=== PATIENT | male | born 1930 | race Hispanic/Latino ===

== ENCOUNTER 2016-11-15 18:13 | Inpatient (IN) | payer MEDICARE ==
[2016-11-15 18:21] VITALS: BMI 23.0
[2016-11-15 19:33] LABS: VENOUS BLOOD GAS BASE EXCESS -5.2 mmol/L (0.0-2.0); VENOUS BLOOD GAS PCO2 32 mmHg (40-60); VENOUS BLOOD PH 7.38 (7.32-7.43)
[2016-11-15 19:39] LABS: CHLORIDE 107 mmol/L (98-107)
[2016-11-15 19:40] LABS: POTASSIUM 4.2 mmol/L (3.6-5.2); SODIUM 137 mmol/L (132-148)
[2016-11-15 19:42] LABS: GFR AFRICAN-AMERICAN > 60
[2016-11-15 19:43] LABS: ALB/GLOB RATIO 0.9 (1.0-2.1); ALKALINE PHOSPHATASE 69 U/L (38-126); ALT/SGPT 35 U/L (21-72); AST/SGOT 27 U/L (17-59); BILIRUBIN,TOTAL 0.9 mg/dL (0.2-1.3); BLOOD UREA NITROGEN 26 mg/dL (9-20); CALCIUM 9.1 mg/dl (8.6-10.4); CARBON DIOXIDE 19 mmol/L (22-30); GLUCOSE,RANDOM 113 mg/dL (75-110); TOTAL PROTEIN 7.8 g/dL (6.3-8.3)
[2016-11-15 19:54] LABS: BASO % 0.2 % (0.0-2.0); HEMATOCRIT 35.8 % (35.0-51.0); LYMPH # 1.1 K/uL (1.0-4.3); LYMPH % 5.2 % (20.0-40.0); MEAN CELL VOLUME 98.3 fL (80.0-94.0); MEAN CORPUSCULAR HEMOGLOBIN 33.5 pg (27.0-31.0); MEAN CORPUSCULAR HGB CONC 34.1 g/dL (33.0-37.0); MEAN PLATELET VOLUME 7.1 fL (7.2-11.7); MONO # 1.1 K/uL (0.0-0.8); MONO % 5.2 % (0.0-10.0); PLATELET COUNT 272 K/uL (130-400); RED CELL DISTRIBUTION WIDTH 13.6 % (11.5-14.5); WHITE BLOOD COUNT 20.3 K/uL (4.8-10.8)
[2016-11-15] MEDS ORDERED: Sodium Chloride 0.9% 1,000 ML IV ONE (20:00)
[2016-11-15 20:29] LABS: NEUTROPHIL 86 % (50-75); TOTAL CELLS COUNTED 100
[2016-11-15] MEDS ORDERED: cefTRIAXone IV 1 gm in Dextros 50 ML IVPB STA (20:37)
[2016-11-15] MEDS ORDERED: ceFAZolin 1 gm FROZEN Premix 1 GM/50 ML ML IVPB ONE (20:44)
[2016-11-15 20:56] LABS: RBC URINE 4 /hpf (0-3); URINE BACTERIA MOD (<OCC); URINE BILIRUBIN NEGATIVE (NEGATIVE); URINE BLOOD NEGATIVE (NEGATIVE); URINE COLOR Yellow (YELLOW); URINE GLUCOSE (UA) NORMAL (Normal); URINE KETONE TRACE mg/dL (NEGATIVE); URINE LEUKOCYTE ESTERASE 3+ Leu/uL (Negative); URINE PROTEIN 2+ mg/dL (NEGATIVE); WBC CLUMPS MANY /hpf; WBC URINE 2890 /hpf (0-5)
--- NOTE | 2016-11-15 21:28 | C.PDOC ---
History Of Present Illness Pt was sent in from [facility] due to fever. Time Seen by Provider: 11/15/16 19:51 Chief Complaint (Nursing): Fever History Per: Family (Son), Other (NH transfer papers) History/Exam Limitations: clinical condition, other (Pt is nonverbal) Onset/Duration Of Symptoms: Days (1) Current Symptoms Are (Timing): Still Present Associated Symptoms: Fever Severity: Moderate Recent travel outside of the [place]: No Additional History Per: Prior Records Past Medical History Reviewed: Historical Data, Nursing Documentation, Vital Signs Vital Signs: Last Vital Signs Temp 101.2 F H 11/15/16 21:04 Pulse 81 11/15/16 21:04 Resp 26 H 11/15/16 21:04 BP 107/64 11/15/16 19:49 Pulse Ox 100 11/15/16 21:04 - Medical History PMH: Arthritis (Osteoarthritis), Atrial Fibrillation, Benign Prostatic Hyperplasia, CAD, CHF, COPD, CVA (affecting right side and speech), Dementia, HTN, Hypercholesterolemia, Hypothyroidism, Parkinson's Disease ((?)) Surgical History: Pacemaker - [employer] Procedures CIRCUMCISION (01/03/14) CYSTOSCOPY NEC (01/03/14) INSERT INTESTINAL TUBE (01/03/14) Family History: States: Unknown Family Hx - Social History Hx Tobacco Use: No Hx Alcohol Use: No Hx Substance Use: No - Immunization History Hx Tetanus Toxoid Vaccination: No Hx Influenza Vaccination: No Hx Pneumococcal Vaccination: No Review Of Systems Review Of Systems: ROS cannot be obtained secondary to pt's inabilty to answer questions. Physical Exam - Physical Exam Appears: Chronically Ill Skin: Normal Color, Warm, Dry Head: Atraumatic, Normacephalic Eye(s): bilateral: PERRL, EOMI Oral Mucosa: Dry Neck: Normal ROM, Supple Cardiovascular: Rhythm Regular Respiratory: Normal Breath Sounds, No Accessory Muscle Use Gastrointestinal/Abdominal: Soft, No Tenderness Back: Other (Stage 2 sacral decubutus ulcer) Extremity: Normal ROM Neurological/Psych: No Normal Speech (nonverbal), Other (Moving all extremities) ED Course And Treatment - Laboratory Results Result Diagrams: 11/15/16 19:19 11/15/16 19:19 Lab Interpretation: Abnormal Interpretation Of Abnormal: Leukocytosis. UTI. ECG: Interpreted By Me, Viewed By Me ECG Rhythm: Sinus Rhythm, R BBB, PVC, Nonspecific Changes Rate From EC O2 Sat by Pulse Oximetry: 100 Pulse Ox Interpretation: Normal - Radiology CXR: Interpreted by Me, Viewed By Me CXR Interpretation: Yes: No Acute Disease - Physician Consult Information Physician Contacted: Thony Mojica (PMD) Outcome Of Conversation: He states that he is away and wants pt to be admitted on hospitalist service. Progress - Interventions Interventions:: Observation, Intravenous fluid - Medications Administered Intravenous: Other (Abx) - Data Reviewed Data Reviewed: Lab, Diagnostic imaging, EKG, Old records - Patient Status Patient status: Partially improved - Continuity of Care Discussed patient case with:: Patient, Family-HIPPA compliant, ED Nurse, PMD, On -call PMD-pt unassigned - Patient Plan Patient Plan: Admission Disposition Counseled Patient/Family Regarding: Studies Performed, Diagnosis - Disposition Disposition: HOSPITALIZED Disposition Time: 21:29 Condition: SERIOUS - POA Present On Arrival: Pressure Ulcer - Clinical Impression Clinical Impression: Fever, UTI (urinary tract infection), Sepsis
--- NOTE | 2016-11-15 22:30 | CP.PCM.HP ---
<Giovanny Fleming P - Last Filed: 11/16/16 03:44> Meds Allergies/Adverse Reactions: Allergies Allergy/AdvReac Type Severity Reaction Status Date / Time No Known Allergies Allergy Verified 11/15/16 18:20 Results - Vital Signs Recent Vital Signs: Last Vital Signs Temp 98.4 F 11/16/16 00:00 Pulse 98 H 11/16/16 00:00 Resp 20 11/16/16 00:00 BP 147/74 11/16/16 00:00 Pulse Ox 98 11/16/16 00:00 - Labs Result Diagrams: 11/15/16 19:19 11/15/16 19:19 Labs: Laboratory Results - last 24 hr 11/15/16 11/15/16 11/15/16 19:19 19:19 19:20 WBC 20.3 H D RBC 3.65 L Hgb 12.2 Hct 35.8 MCV 98.3 H D MCH 33.5 H MCHC 34.1 RDW 13.6 Plt Count 272 MPV 7.1 L Neut % (Auto) 89.4 H Lymph % (Auto) 5.2 L [place] % (Auto) 5.2 Eos % (Auto) 0.0 Baso % (Auto) 0.2 Neut # 18.2 H Lymph # 1.1 [place] # 1.1 H Eos # 0.0 Baso # 0.0 Neutrophils % (Manual) 86 H Band Neutrophils % 5 H Lymphocytes % (Manual) 5 L Monocytes % (Manual) 4 Platelet Estimate Normal Anisocytosis (manual) Slight pO2 25 L VBG pH 7.38 VBG pCO2 32 L VBG HCO3 19.4 VBG Total CO2 19.9 L VBG O2 Sat (Calc) 54.9 VBG Base Excess -5.2 L VBG Potassium 3.8 Glucose 113 H Lactate 1.3 Sodium 137 146.0 Potassium 4.2 Chloride 107 122.0 H Carbon Dioxide 19 L Anion Gap 15 BUN 26 H Creatinine 1.1 Est GFR ( Amer) > 60 Est GFR (Non-Af Amer) > 60 POC Glucose (mg/dL) Random Glucose 113 H Calcium 9.1 Total Bilirubin 0.9 AST 27 ALT 35 Alkaline Phosphatase 69 Total Protein 7.8 Albumin 3.7 Globulin 4.1 H Albumin/Globulin Ratio 0.9 L Venous Blood Potassium 3.8 Urine Color Urine Clarity Urine pH Ur Specific [place] Urine Protein Urine Glucose (UA) Urine Ketones Urine Blood Urine Nitrate Urine Bilirubin Urine Urobilinogen Ur Leukocyte Esterase Urine WBC (Auto) Urine RBC (Auto) Urine WBC Clumps (Auto) Urine Bacteria 11/15/16 11/16/16 20:35 01:54 WBC RBC Hgb Hct MCV MCH MCHC RDW Plt Count MPV Neut % (Auto) Lymph % (Auto) [place] % (Auto) Eos % (Auto) Baso % (Auto) Neut # Lymph # [place] # Eos # Baso # Neutrophils % (Manual) Band Neutrophils % Lymphocytes % (Manual) Monocytes % (Manual) Platelet Estimate Anisocytosis (manual) pO2 VBG pH VBG pCO2 VBG HCO3 VBG Total CO2 VBG O2 Sat (Calc) VBG Base Excess VBG Potassium Glucose Lactate Sodium Potassium Chloride Carbon Dioxide Anion Gap BUN Creatinine Est GFR ( Amer) Est GFR (Non-Af Amer) POC Glucose (mg/dL) 138 H Random Glucose Calcium Total Bilirubin AST ALT Alkaline Phosphatase Total Protein Albumin Globulin Albumin/Globulin Ratio Venous Blood Potassium Urine Color Yellow Urine Clarity Turbid Urine pH 5.0 Ur Specific [place] 1.021 Urine Protein 2+ H Urine Glucose (UA) Normal Urine Ketones Trace Urine Blood Negative Urine Nitrate Negative Urine Bilirubin Negative Urine Urobilinogen 2.0 Ur Leukocyte Esterase 3+ H Urine WBC (Auto) 2890 H Urine RBC (Auto) 4 H Urine WBC Clumps (Auto) Many H Urine Bacteria Mod H Attending/Attestation - Attestation I have personally seen and examined this patient.: Yes I have fully participated in the care of the patient.: Yes I have reviewed all pertinent clinical information: Yes Notes (Text): Assessment * Sepsis source likely UTI, DD of cellulitis of right leg, atelectesis of lung, hardwares pacemaker/wires, pending blood/urine cultures * [place] resident * Stroke with Right arm weakness, right leg some weakness, aphasia * h/o afib controlled rate * H/o seizure disorder * H/o BPH * H/o ileus and constipation, currently abd soft and clinically benign * DNR/DNI Plan * Broad spectrum abx started vancomycin, zosyn * Venous doppler * One dose therapeutic lovenox * Gi prophylaxis * see orders for detail. <Eva Estrada - Last Filed: 11/16/16 05:27> History of Present Illness - History of Present Illness History of Present Illness: Patient is an 86 year old male with a past medical history of osteoarthritis, atrial fibrillation, BPH, CAD, CHF, COPD, CVA, dementia, hypertension, high cholesterol, hypothyroidism, and Parksinsons, who is sent by his half-way to the ED for a fever. Patient is non-verbal and occasionally responds to commands, therefore, history and review of systems is limited. In the ED, patient was found to have a temperature of 101.2 and a urinalysis positive for bacteria. Patient was given fluids and one dose of Rocephin. Patient appears comfortable in bed and in no acute distress. PMD: Dr. Thony Mojica PMHx: osteoarthritis, atrial fibrillation, BPH, CAD, CHF, COPD, CVA (right sided weakness and speech affected), dementia, hypertension, high cholesterol, hypothyroidism, and Parksinsons disease Surgical, family, and social history not obtained by patient (non-verbal, no family at bedside) Allergies: NKDA Medications: See EMR Present on Admission - Present on Admission Any Indicators Present on Admission: Yes Decubitus Ulcer Stage: II Review of Systems - Review of Systems Systems not reviewed;Unavailable: Other (Non-verbal) Past Patient History - Infectious Disease Hx of Infectious Diseases: None - Tetanus Immunizations Tetanus Immunization: Unknown - Past Medical History & Family History Past Medical History?: Yes - Past Social History Smoking Status: Former Smoker - CARDIAC Hx Atrial Fibrillation: Yes Hx Congestive Heart Failure: Yes Hx Hypercholesterolemia: Yes Hx Hypertension: Yes Hx Pacemaker: Yes - PULMONARY Hx Chronic Obstructive Pulmonary Disease (COPD): Yes - NEUROLOGICAL Hx Dementia: Yes Hx Parkinson's Disease: Yes ((?)) - HEENT Hx HEENT Problems: Yes Hx Deafness: Yes (partial) Other/Comment: [place] - ENDOCRINE/METABOLIC Hx Hypothyroidism: Yes - HEMATOLOGICAL/ONCOLOGICAL Hx Blood Disorders: No - INTEGUMENTARY Hx Dermatological Problems: No - MUSCULOSKELETAL/RHEUMATOLOGICAL Hx Arthritis: Yes (Osteoarthritis) - GASTROINTESTINAL Hx Gastrointestinal Disorders: Yes Hx Constipation: Yes - GENITOURINARY/GYNECOLOGICAL Hx Genitourinary Disorders: Yes Hx Hematuria: Yes (current dx) Hx Prostate Cancer: No Hx Prostate Problems: Yes (BPH) - PSYCHIATRIC Hx Substance Use: No - SURGICAL HISTORY Hx Surgeries: Yes Other/Comment: S/p permanent pacemaker implant - ANESTHESIA Hx Anesthesia: Yes Hx Anesthesia Reactions: No Hx Malignant Hyperthermia: No Physical Exam - Constitutional Appears: Chronically Ill - Head Exam Head Exam: ATRAUMATIC, NORMAL INSPECTION - Eye Exam Eye Exam: PERRL (sluggish). absent: EOMI (Tracking; does not follow commands.) - ENT Exam ENT Exam: Mucous Membranes Dry - Respiratory Exam Respiratory Exam: Decreased Breath Sounds. absent: Rhonchi, Wheezes, Respiratory Distress - Cardiovascular Exam Cardiovascular Exam: RRR, +S1, +S2. absent: Bradycardia, Tachycardia - GI/Abdominal Exam GI & Abdominal Exam: Distended, Normal Bowel Sounds, Soft. absent: Tenderness - Extremities Exam Extremities exam: Positive for: pedal pulses present (diminished dorsalis pedis pulses). Negative for: normal inspection (RLE warm to touch and slightly larger compared to LLE), pedal edema, tenderness - Neurological Exam Neurological exam: Alert - Psychiatric Exam Psychiatric exam: Flat Affect - Skin Skin Exam: Dry, Intact, Normal Color, Warm Additional comments: Stage 2 sacral decubitus ulcer. Results - Vital Signs Recent Vital Signs: Last Vital Signs Temp 101.1 F H 11/15/16 22:16 Pulse 83 11/15/16 22:16 Resp 25 H 11/15/16 22:16 BP 119/61 11/15/16 22:16 Pulse Ox 99 11/15/16 22:16 - Labs Result Diagrams: 11/15/16 19:19 11/15/16 19:19 Labs: Laboratory Results - last 24 hr 11/15/16 11/15/16 11/15/16 19:19 19:19 19:20 WBC 20.3 H D RBC 3.65 L Hgb 12.2 Hct 35.8 MCV 98.3 H D MCH 33.5 H MCHC 34.1 RDW 13.6 Plt Count 272 MPV 7.1 L Neut % (Auto) 89.4 H Lymph % (Auto) 5.2 L [place] % (Auto) 5.2 Eos % (Auto) 0.0 Baso % (Auto) 0.2 Neut # 18.2 H Lymph # 1.1 [place] # 1.1 H Eos # 0.0 Baso # 0.0 Neutrophils % (Manual) 86 H Band Neutrophils % 5 H Lymphocytes % (Manual) 5 L Monocytes % (Manual) 4 Platelet Estimate Normal Anisocytosis (manual) Slight pO2 25 L VBG pH 7.38 VBG pCO2 32 L VBG HCO3 19.4 VBG Total CO2 19.9 L VBG O2 Sat (Calc) 54.9 VBG Base Excess -5.2 L VBG Potassium 3.8 Glucose 113 H Lactate 1.3 Sodium 137 146.0 Potassium 4.2 Chloride 107 122.0 H Carbon Dioxide 19 L Anion Gap 15 BUN 26 H Creatinine 1.1 Est GFR ( Amer) > 60 Est GFR (Non-Af Amer) > 60 Random Glucose 113 H Calcium 9.1 Total Bilirubin 0.9 AST 27 ALT 35 Alkaline Phosphatase 69 Total Protein 7.8 Albumin 3.7 Globulin 4.1 H Albumin/Globulin Ratio 0.9 L Venous Blood Potassium 3.8 Urine Color Urine Clarity Urine pH Ur Specific [place] Urine Protein Urine Glucose (UA) Urine Ketones Urine Blood Urine Nitrate Urine Bilirubin Urine Urobilinogen Ur Leukocyte Esterase Urine WBC (Auto) Urine RBC (Auto) Urine WBC Clumps (Auto) Urine Bacteria 11/15/16 20:35 WBC RBC Hgb Hct MCV MCH MCHC RDW Plt Count MPV Neut % (Auto) Lymph % (Auto) [place] % (Auto) Eos % (Auto) Baso % (Auto) Neut # Lymph # [place] # Eos # Baso # Neutrophils % (Manual) Band Neutrophils % Lymphocytes % (Manual) Monocytes % (Manual) Platelet Estimate Anisocytosis (manual) pO2 VBG pH VBG pCO2 VBG HCO3 VBG Total CO2 VBG O2 Sat (Calc) VBG Base Excess VBG Potassium Glucose Lactate Sodium Potassium Chloride Carbon Dioxide Anion Gap BUN Creatinine Est GFR ( Amer) Est GFR (Non-Af Amer) Random Glucose Calcium Total Bilirubin AST ALT Alkaline Phosphatase Total Protein Albumin Globulin Albumin/Globulin Ratio Venous Blood Potassium Urine Color Yellow Urine Clarity Turbid Urine pH 5.0 Ur Specific [place] 1.021 Urine Protein 2+ H Urine Glucose (UA) Normal Urine Ketones Trace Urine Blood Negative Urine Nitrate Negative Urine Bilirubin Negative Urine Urobilinogen 2.0 Ur Leukocyte Esterase 3+ H Urine WBC (Auto) 2890 H Urine RBC (Auto) 4 H Urine WBC Clumps (Auto) Many H Urine Bacteria Mod H Assessment & Plan (1) Sepsis Assessment and Plan: Sepsis likely secondary to UTI, ddx of cellulitis of right leg, sacral decubitus ulcer, atelectasis of lung, hardware of pacemaker/wires Started on broad spectrum antibiotics- Vancomycin and Zosyn Blood and urine cultures: f/u results Stool culture: f/u results Venous dopplers of right LE: f/u results C.Diff: f/u results Fecal Leukocytes: f/u results Stool culture: f/u results Status: Acute (2) UTI (urinary tract infection) Assessment and Plan: Sepsis likely secondary to UTI, ddx of cellulitis of right leg, atelectasis, of lung, hardware of pacemaker/wires UA: Protein 2+, Leukocyte Esterase 3+, WBC 2890, RBC 4, WBC clumps- many, Bacteria- moderate. Blood and urine cultures: pending Started on broad spectrum antibiotics- Vancomycin and Zosyn Status: Acute (3) Right leg swelling Assessment and Plan: Venous dopplers: f/u results One stat dose of lovenox 80mg given. Status: Acute (4) Seizure Assessment and Plan: History of seizures. Continue home medication, Phenytoin 100mg PO TID. Status: Acute (5) CAD (coronary artery disease) Assessment and Plan: Continue aspirin, plavix, and metoprolol tartrate. Status: Acute (6) Hypothyroid Assessment and Plan: Continue home medication, Synthroid 125mcg PO daily. Status: Acute (7) BPH (benign prostatic hyperplasia) Assessment and Plan: History of BPH. Continue home medications, Proscar 5mg PO daily, Floxmax 0.4mg PO daily Status: Acute (8) Prophylactic measure Assessment and Plan: Telehealth Director referral and speech therapy for swallow evaluation Heart Healthy Diet- finely chopped Pepcid 20mg PO daily PT/OT Status: Acute
[2016-11-15] MEDS: Sodium Chloride 0.9% 1,000 ML IV SCH (23:15)
[2016-11-16] MEDS ORDERED: Enoxaparin 80 mg Syringe SC STA (03:27)
[2016-11-16] MEDS: Piperacill/Tazo 3.375gm in Dex 3.375 GM/50 ML BAG IVPB SCH ×4 (04:09→21:39)
[2016-11-16] MEDS ORDERED: Sodium Chloride 0.9% 1,000 ML IV ONE (05:49)
[2016-11-16] MEDS: Levothyroxine 125 MCG TAB PO SCH (06:44)
[2016-11-16 07:02] LABS: BASO % 0.2 % (0.0-2.0); HEMATOCRIT 34.8 % (35.0-51.0); LYMPH % 5.7 % (20.0-40.0); MEAN CELL VOLUME 98.5 fL (80.0-94.0); MEAN CORPUSCULAR HEMOGLOBIN 32.9 pg (27.0-31.0); MEAN CORPUSCULAR HGB CONC 33.4 g/dL (33.0-37.0); MEAN PLATELET VOLUME 7.2 fL (7.2-11.7); MONO # 0.7 K/uL (0.0-0.8); MONO % 3.7 % (0.0-10.0); NRBC % 0.1 % (0.0-2.0); PLATELET COUNT 268 K/uL (130-400); RED CELL DISTRIBUTION WIDTH 13.7 % (11.5-14.5); WHITE BLOOD COUNT 17.6 K/uL (4.8-10.8)
[2016-11-16 07:15] LABS: CHLORIDE 110 mmol/L (98-107); POTASSIUM 3.3 mmol/L (3.6-5.2); SODIUM 140 mmol/L (132-148)
[2016-11-16 07:17] LABS: BILIRUBIN,TOTAL 1.1 mg/dL (0.2-1.3); GFR AFRICAN-AMERICAN > 60
[2016-11-16 07:18] LABS: ALKALINE PHOSPHATASE 74 U/L (38-126); ALT/SGPT 27 U/L (21-72); AST/SGOT 21 U/L (17-59); BLOOD UREA NITROGEN 23 mg/dL (9-20); CARBON DIOXIDE 17 mmol/L (22-30); GLUCOSE,RANDOM 105 mg/dL (75-110); TOTAL PROTEIN 7.4 g/dL (6.3-8.3)
[2016-11-16 07:19] LABS: CALCIUM 8.4 mg/dl (8.6-10.4)
[2016-11-16 07:27] LABS: ALB/GLOB RATIO 0.9 (1.0-2.1)
--- NOTE | 2016-11-16 09:01 | RAD ---
HISTORY: cough fever COMPARISON: Comparison is made to 01/24/2016 FINDINGS: LUNGS: Bibasilar small opacities likely represent atelectasis. PLEURA: No significant pleural effusion identified, no pneumothorax apparent. CARDIOVASCULAR: Normal. Multiple bilateral pacemaker wires are seen in place. OSSEOUS STRUCTURES: No significant abnormalities. VISUALIZED UPPER ABDOMEN: Mild elevation of the left hemidiaphragm associated with mildly dilated bowel loops. OTHER FINDINGS: None. IMPRESSION: Small bibasilar opacities likely atelectasis. Otherwise no significant interval change.
[2016-11-16 09:08] LABS: NEUTROPHIL 82 % (50-75); TOTAL CELLS COUNTED 100
[2016-11-16] MEDS: Enoxaparin 40 mg Syringe SC SCH (09:50)
[2016-11-16] MEDS ORDERED: Potassium Chloride 20 mEq ER Tab PO SCH ×2 (10:00→10:45)
--- NOTE | 2016-11-16 16:02 | CP.PCM.PN ---
<Lucinda Bill - Last Filed: 11/16/16 15:47> Subjective - Date & Time of Evaluation Date of Evaluation: 11/16/16 Time of Evaluation: 09:00 - Subjective Subjective: Medicine Note for Dr. Guy Patient was seen and examined at bedside. and Son at bedside. Reported patient had a fever yesterday. 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 Objective - Vital Signs/Intake and Output Vital Signs (last 24 hours): Temp Pulse Resp BP Pulse Ox 99.0 F 98 H 20 95/61 L 95 11/16/16 09:12 11/16/16 09:12 11/16/16 09:12 11/16/16 09:49 11/16/16 09:12 Intake and Output: 11/16/16 11/16/16 06:59 18:59 Intake Total 3130 Output Total 700 Balance 2430 - Medications Medications: Current Medications Acetaminophen (Tylenol 325mg Tab) 325 mg PO Q6H PRN PRN Reason: Fever >100.4 F Ascorbic Acid (Vitamin C 500 Mg Tab) 500 mg PO BID [facility] Last Admin: 11/16/16 09:50 Dose: 500 mg Clopidogrel Bisulfate (Plavix) 75 mg PO DAILY [facility] Last Admin: 11/16/16 09:50 Dose: 75 mg Enoxaparin Sodium (Lovenox) 40 mg SC DAILY [facility] Last Admin: 11/16/16 09:50 Dose: 40 mg Famotidine (Pepcid) 20 mg PO DAILY [facility] Last Admin: 11/16/16 09:50 Dose: 20 mg Finasteride (Proscar) 5 mg PO DAILY [facility] Last Admin: 11/16/16 09:50 Dose: 5 mg Folic Acid (Folic Acid) 1 mg PO DAILY [facility] Last Admin: 11/16/16 09:48 Dose: 1 mg Sodium Chloride (Sodium Chloride 0.9%) 1,000 mls @ 100 mls/hr IV .Q10H [facility] Last Admin: 11/15/16 23:15 Dose: 100 mls/hr Piperacillin Sod/Tazobactam Sod (Zosyn 3.375 Gm Iv Premix) 3.375 gm in 50 mls @ 100 mls/hr IVPB Q6H [facility] Last Admin: 11/16/16 09:51 Dose: 100 mls/hr Vancomycin HCl 1 gm/ Sodium (Chloride) 250 mls @ 166.7 mls/hr IVPB Q24H [facility] Last Admin: 11/16/16 04:09 Dose: 166.7 mls/hr Levothyroxine Sodium (Synthroid) 125 mcg PO DAILY@0630 [facility] Last Admin: 11/16/16 06:44 Dose: 125 mcg Metoprolol Tartrate (Lopressor) 25 mg PO DAILY [facility] Last Admin: 11/16/16 09:49 Dose: Not Given Phenytoin Sodium (Dilantin) 100 mg PO QID [facility] Last Admin: 11/16/16 13:45 Dose: 100 mg Pneumococcal Polyvalent Vaccine (Pneumovax 23 Vaccine) 0.5 ml IM .ONCE ONE Stop: 11/18/16 10:01 Potassium Chloride (K-Dur 20 Meq Er Tab) 40 meq PO BID [facility] Stop: 11/17/16 10:46 Last Admin: 11/16/16 12:00 Dose: 40 meq Tamsulosin HCl (Flomax) 0.4 mg PO DAILY [facility] Last Admin: 11/16/16 09:48 Dose: 0.4 mg - Labs Labs: 11/16/16 06:53 11/16/16 06:53 - Additional Findings Additional findings: - Constitutional Appears: Chronically Ill - Head Exam Head Exam: ATRAUMATIC, NORMAL INSPECTION - Eye Exam Eye Exam: PERRL (sluggish). absent: EOMI (Tracking; does not follow commands.) - ENT Exam ENT Exam: Mucous Membranes Dry - Respiratory Exam Respiratory Exam: Decreased Breath Sounds. absent: Rhonchi, Wheezes, Respiratory Distress - Cardiovascular Exam Cardiovascular Exam: RRR, +S1, +S2. absent: Bradycardia, Tachycardia - GI/Abdominal Exam GI & Abdominal Exam: Distended, Normal Bowel Sounds, Soft. absent: Tenderness - Extremities Exam Extremities exam: Positive for: pedal pulses present (diminished dorsalis pedis pulses). Negative for: normal inspection (RLE warm to touch and slightly larger compared to LLE), pedal edema, tenderness - Neurological Exam Neurological exam: Alert - Psychiatric Exam Psychiatric exam: Flat Affect - Skin Skin Exam: Dry, Intact, Normal Color, Warm Additional comments: Stage 2 sacral decubitus ulcer. Assessment and Plan - Assessment and Plan (Free Text) Plan: Sepsis UTI (urinary tract infection) * Sepsis likely secondary to UTI, sacral decubitus ulcer stage 2 * Infectious Disease consulted- Dr. Armendariz- help appreciated * Febrile, tachycardia, leukocytosis with left shift, bandemia, lactate 1.3 * UA: Protein 2+, Leukocyte Esterase 3+, WBC 2890, RBC 4, WBC clumps- many, Bacteria- moderate. * Urine Culture 11/15/16: Gram neg xander, strep agalactiae group B - pending results * [place] inserted, monitor Is & Os * F/U Blood cultures, Stool culture, C.Diffs, Fecal Leukocytes * NS @ 100cc/hr * Vancomycin and Zosyn started on 11/16/16 Sacral Wound Ulcer - Stage 2 * Wound care consulted CAD (coronary artery disease) * Continue aspirin, plavix, and metoprolol tartrate * F/U ECHO Right leg swelling * Venous dopplers: negative for DVT * One stat dose of lovenox 80mg was given in the ED Seizure * Continue home medication, Phenytoin 100mg PO TID Hypothyroid * Continue home medication, Synthroid 125mcg PO daily BPH (benign prostatic hyperplasia) * Continue home medications, Proscar 5mg PO daily, Floxmax 0.4mg PO daily Prophylactic measure * GI PPX: Pepcid 20mg PO daily * DVT PPX: Lovenox 40mg SC daily, SCDs * Payroll And Benefits Analyst referral and speech therapy for swallow evaluation * Dysphagia Diet * PT/OT DW CALI Mejia DO, PGY-1 <Augustin Horta - Last Filed: 11/16/16 18:21> Objective - Vital Signs/Intake and Output Vital Signs (last 24 hours): Temp Pulse Resp BP Pulse Ox 98.1 F 74 20 107/66 99 11/16/16 15:00 11/16/16 16:40 11/16/16 15:00 11/16/16 16:40 11/16/16 16:40 Intake and Output: 11/16/16 11/16/16 06:59 18:59 Intake Total 3130 Output Total 700 Balance 2430 - Medications Medications: Current Medications Acetaminophen (Tylenol 325mg Tab) 325 mg PO Q6H PRN PRN Reason: Fever >100.4 F Ascorbic Acid (Vitamin C 500 Mg Tab) 500 mg PO BID [facility] Last Admin: 11/16/16 17:48 Dose: 500 mg Clopidogrel Bisulfate (Plavix) 75 mg PO DAILY [facility] Last Admin: 11/16/16 09:50 Dose: 75 mg Enoxaparin Sodium (Lovenox) 40 mg SC DAILY [facility] Last Admin: 11/16/16 09:50 Dose: 40 mg Famotidine (Pepcid) 20 mg PO DAILY [facility] Last Admin: 11/16/16 09:50 Dose: 20 mg Finasteride (Proscar) 5 mg PO DAILY [facility] Last Admin: 11/16/16 09:50 Dose: 5 mg Folic Acid (Folic Acid) 1 mg PO DAILY [facility] Last Admin: 11/16/16 09:48 Dose: 1 mg Sodium Chloride (Sodium Chloride 0.9%) 1,000 mls @ 100 mls/hr IV .Q10H [facility] Last Admin: 11/16/16 17:50 Dose: 100 mls/hr Piperacillin Sod/Tazobactam Sod (Zosyn 3.375 Gm Iv Premix) 3.375 gm in 50 mls @ 100 mls/hr IVPB Q6H [facility] Last Admin: 11/16/16 16:04 Dose: 100 mls/hr Vancomycin HCl 1 gm/ Sodium (Chloride) 250 mls @ 166.7 mls/hr IVPB Q24H [facility] Last Admin: 11/16/16 04:09 Dose: 166.7 mls/hr Levothyroxine Sodium (Synthroid) 125 mcg PO DAILY@0630 [facility] Last Admin: 11/16/16 06:44 Dose: 125 mcg Metoprolol Tartrate (Lopressor) 25 mg PO DAILY [facility] Last Admin: 11/16/16 09:49 Dose: Not Given Phenytoin Sodium (Dilantin) 100 mg PO QID [facility] Last Admin: 11/16/16 17:48 Dose: 100 mg Pneumococcal Polyvalent Vaccine (Pneumovax 23 Vaccine) 0.5 ml IM .ONCE ONE Stop: 11/18/16 10:01 Potassium Chloride (Potassium Chloride Oral Soln) 40 meq PO BID [facility] Stop: 11/17/16 10:46 Last Admin: 11/16/16 18:10 Dose: 40 meq Tamsulosin HCl (Flomax) 0.4 mg PO DAILY [facility] Last Admin: 11/16/16 09:48 Dose: 0.4 mg - Labs Labs: 11/16/16 06:53 11/16/16 06:53 Attending/Attestation - Attestation I have personally seen and examined this patient.: Yes I have fully participated in the care of the patient.: Yes I have reviewed all pertinent clinical information, including history, physical exam and plan: Yes Notes (Text): 11/16/16 18:11 This is a 86 years old male with history of CVA,aphasia,CAD,Seizure, hypothyroidism,BPH and sacral ulcer was brought in from [place] for fever.patients history Discussed with his family at bed side.Patient was seen and examined with resident .His fever is coming downe, tachycardia, leukocytosis with left shift, bandemia, lactate 1.3 1.Sepsis likely secondary to UTI continue zosyn and vancomycin,IV hydration,monitor urine out put ,monitor BP Infectious Disease consulted- Dr. Armendariz- help appreciated Urine Culture 11/15/16: Gram neg xander, strep agalactiae group B - pending results ,follow blood and urine cultures 2.sacral wound-wound care by wound care team 3.CAD-continue asprin,plavix and metoprolol 4.rigth leg edema-follow doppler,continue lovenox 5seizure on phenytoin 6.Hypothyroidism on synthroid 7BPH-continue home meds 8.DVT and GI rpophylaxs 9.PT and OT once stable
--- NOTE | 2016-11-16 16:13 | CP.PCM.CON ---
History of Present Illness - History of Present Illness History of Present Illness: 86 yo male with hx of CVA and right sided weakness admitted with Urosepsis unable to provide hx - Medical History PMH: Arthritis (Osteoarthritis), Atrial Fibrillation, Benign Prostatic Hyperplasia, CAD, CHF, COPD, CVA (affecting right side and speech), Dementia, HTN, Hypercholesterolemia, Hypothyroidism, Parkinson's Disease ((?)) Surgical History: Pacemaker Review of Systems - Review of Systems Systems not reviewed;Unavailable: Altered Mental Status - Constitutional Constitutional: As Per HPI - EENT Eyes: absent: As Per HPI, Blind Spots, Blurred Vision, Change in Vision, Decreased Night Vision, Diplopia, Discharge, Dry Eye, Exophthalmos, Floaters, Irritation, Itchy Eyes, Loss of Peripheral Vision, Pain, Photophobia, Requires Corrective Lenses, Sees Flashes, Spots in Vision, Tunnel Vision, Other Visual Disturbances, Loss of Vision, Other Ears: absent: As Per HPI, Decreased Hearing, Ear Discharge, Ear Pain, Tinnitus, Abnormal Hearing, Disequilibrium, Dizziness, Other Nose/Mouth/Throat: absent: As Per HPI, Epistaxis, Nasal Congestion, Nasal Discharge, Nasal Obstruction, Nasal Trauma, Nose Pain, Post Nasal Drip, Sinus Pain, Sinus Pressure, Bleeding Gums, Change in Voice, Dental Pain, Dry Mouth, Dysphagia, Halitosis, Hoarsness, Lip Swelling, Mouth Lesions, Mouth Pain, Odynophagia, Sore Throat, Throat Swelling, Tongue Swelling, Facial Pain, Neck Pain, Neck Mass, Other - Cardiovascular Cardiovascular: absent: As Per HPI, Acrocyanosis, Chest Pain, Chest Pain at Rest , Chest Pain with Activity, Claudication, Diaphoresis, Dyspnea, Dyspnea on Exertion, Edema, Irregular Heart Rhythm, Pain Radiating to Arm/Neck/Jaw, Leg Edema, Leg Ulcers, Lightheadedness, Orthopnea, Palpitations, Paroxysmal Nocturnal Dyspnea, Pedal Edema, Radiating Pain, Rapid Heart Rate, Slow Heart Rate, Syncope, Other - Respiratory Respiratory: absent: As Per HPI, Cough, Dyspnea, Hemoptysis, Dyspnea on Exertion , Wheezing, Snoring, Stridor, Pain on Inspiration, Chest Congestion, Excessive Mucous Production, Change in Mucous Color, Pain with Coughing, Other - Gastrointestinal Gastrointestinal: absent: As Per HPI, Abdominal Pain, Belching, Bloating, Change in Bowel Habits, Change in Stool Character, Coffee Ground Emesis, Constipation, Cramping, Diarrhea, Dyspepsia, Dysphagia, Early Satiety, Excessive Flatus, Fecal Incontinence, Heartburn, Hematemesis, Hematochezia, Loose Stools, Melena, Nausea, Odynophagia, Temesmus, Vomiting, Other - Genitourinary Genitourinary: absent: As Per HPI, Change in Urinary Stream, Difficulty Urinating, Dysuria, Flank Pain, Hematuria, Pyuria, Nocturia, Urinary Incontinence, Urinary Frequency, Urinary Hesitance, Urinary Urgency, Voiding Freq/Small Amts, Freq UTI, Hx Renal/Bladder Calculi, Hx /Renal Surgery, Bladder Distension, Other - Musculoskeletal Musculoskeletal: absent: As Per HPI, Abnormal Gait, Arthralgias, Atrophy, Back Pain, Deformity, Joint Swelling, Limited Range of Motion, Loss of Height, Muscle Cramps, Muscle Weakness, Myalgias, Neck Pain, Numbness, Radiating Pain into Limb, Stiffness, Tingling, Other - Integumentary Integumentary: absent: As Per HPI, Acne, Alopecia, Bleeding Lesions, Change in Hair, Change in Nails, Change in Pigmentation, Changing Lesions, Dry Skin, Erythema, Furuncle, Hirsutism, Lesions, New Lesions, Non-Healing Lesions, Photosensitivity, Pruritus, Rash, Skin Pain, Skin Ulcer, Sores, Striae, Swelling , Unusual Bruising, Wounds, Jaundice, Other - Neurological Neurological: absent: As Per HPI, Abnormal Gait, Abnormal Hearing, Abnormal Movements, Abnormal Speech, Behavioral Changes, Burning Sensations, Confusion, Convulsions, Disequilibrium, Dizziness, Numbness, Focal Weakness, Frequent Falls , Headaches, Lack of Coordination, Loss of Vision, Memory Loss, Paresthesias, Radicular Pain, Restless Legs, Sensory Deficit, Syncope, Tingling, Tremor, Vertigo, Weakness, Other Visual Disturbances, Other - Psychiatric Psychiatric: absent: As Per HPI, Abnormal Sleep Pattern, Anhedonia, Anxiety, Auditory Hallucinations, Behavioral Changes, Change in Appetite, Change in Libido, Confusion, Depression, Difficulty Concentrating, Hallucinations, Homicidal Ideation, Hopelessness, Irritability, Memory Loss, Mood Swings, Panic Attacks, Paranoia, Suicidal Ideation, Visual Hallucinations, Tactile Hallucinations, Other - Endocrine Endocrine: absent: As Per HPI, Change in Body Appearance, Change in Libido, Cold Intolorance, Deepening of Voice, Excessive Sweating, Fatigue, Flushing, Heat Intolorance, Increase in Ring/Shoe/Hat Size, Palpitations, Polydipsia, Polyphagia, Polyuria, Other - Hematologic/Lymphatic Hematologic: absent: As Per HPI, Easy Bleeding, Easy Bruising, Lymphadenopathy, Other Past Patient History - Infectious Disease Hx of Infectious Diseases: None - Tetanus Immunizations Tetanus Immunization: Unknown - Past Medical History & Family History Past Medical History?: Yes - Past Social History Smoking Status: Former Smoker - CARDIAC Hx Atrial Fibrillation: Yes Hx Congestive Heart Failure: Yes Hx Hypercholesterolemia: Yes Hx Hypertension: Yes Hx Pacemaker: Yes - PULMONARY Hx Chronic Obstructive Pulmonary Disease (COPD): Yes - NEUROLOGICAL Hx Dementia: Yes Hx Parkinson's Disease: Yes ((?)) - HEENT Hx HEENT Problems: Yes Hx Deafness: Yes (partial) Other/Comment: [place] - RENAL Hx Chronic Kidney Disease: No - ENDOCRINE/METABOLIC Hx Hypothyroidism: Yes - HEMATOLOGICAL/ONCOLOGICAL Hx Blood Disorders: No - INTEGUMENTARY Hx Dermatological Problems: No - MUSCULOSKELETAL/RHEUMATOLOGICAL Hx Arthritis: Yes (Osteoarthritis) - GASTROINTESTINAL Hx Gastrointestinal Disorders: Yes Hx Constipation: Yes - GENITOURINARY/GYNECOLOGICAL Hx Genitourinary Disorders: Yes Hx Hematuria: Yes (current dx) Hx Prostate Cancer: No Hx Prostate Problems: Yes (BPH) - PSYCHIATRIC Hx Substance Use: No - SURGICAL HISTORY Hx Surgeries: Yes Other/Comment: S/p permanent pacemaker implant - ANESTHESIA Hx Anesthesia: Yes Hx Anesthesia Reactions: No Hx Malignant Hyperthermia: No Meds Allergies/Adverse Reactions: Allergies Allergy/AdvReac Type Severity Reaction Status Date / Time No Known Allergies Allergy Verified 11/15/16 18:20 - Medications Medications: Current Medications Acetaminophen (Tylenol 325mg Tab) 325 mg PO Q6H PRN PRN Reason: Fever >100.4 F Ascorbic Acid (Vitamin C 500 Mg Tab) 500 mg PO BID [facility] Last Admin: 11/16/16 09:50 Dose: 500 mg Clopidogrel Bisulfate (Plavix) 75 mg PO DAILY [facility] Last Admin: 11/16/16 09:50 Dose: 75 mg Enoxaparin Sodium (Lovenox) 40 mg SC DAILY [facility] Last Admin: 11/16/16 09:50 Dose: 40 mg Famotidine (Pepcid) 20 mg PO DAILY [facility] Last Admin: 11/16/16 09:50 Dose: 20 mg Finasteride (Proscar) 5 mg PO DAILY [facility] Last Admin: 11/16/16 09:50 Dose: 5 mg Folic Acid (Folic Acid) 1 mg PO DAILY [facility] Last Admin: 11/16/16 09:48 Dose: 1 mg Sodium Chloride (Sodium Chloride 0.9%) 1,000 mls @ 100 mls/hr IV .Q10H [facility] Last Admin: 11/15/16 23:15 Dose: 100 mls/hr Piperacillin Sod/Tazobactam Sod (Zosyn 3.375 Gm Iv Premix) 3.375 gm in 50 mls @ 100 mls/hr IVPB Q6H [facility] Last Admin: 11/16/16 09:51 Dose: 100 mls/hr Vancomycin HCl 1 gm/ Sodium (Chloride) 250 mls @ 166.7 mls/hr IVPB Q24H [facility] Last Admin: 11/16/16 04:09 Dose: 166.7 mls/hr Levothyroxine Sodium (Synthroid) 125 mcg PO DAILY@0630 [facility] Last Admin: 11/16/16 06:44 Dose: 125 mcg Metoprolol Tartrate (Lopressor) 25 mg PO DAILY [facility] Last Admin: 11/16/16 09:49 Dose: Not Given Phenytoin Sodium (Dilantin) 100 mg PO QID [facility] Last Admin: 11/16/16 13:45 Dose: 100 mg Pneumococcal Polyvalent Vaccine (Pneumovax 23 Vaccine) 0.5 ml IM .ONCE ONE Stop: 11/18/16 10:01 Potassium Chloride (K-Dur 20 Meq Er Tab) 40 meq PO BID [facility] Stop: 11/17/16 10:46 Last Admin: 11/16/16 12:00 Dose: 40 meq Tamsulosin HCl (Flomax) 0.4 mg PO DAILY [facility] Last Admin: 11/16/16 09:48 Dose: 0.4 mg Physical Exam - Constitutional Appears: Non-toxic, Cachectic, Chronically Ill - Head Exam Head Exam: NORMOCEPHALIC - Eye Exam Eye Exam: PERRL - ENT Exam ENT Exam: Mucous Membranes Dry, Normal External Ear Exam - Neck Exam Neck exam: Negative for: Lymphadenopathy - Respiratory Exam Respiratory Exam: Decreased Breath Sounds, Clear to Auscultation Bilateral - Cardiovascular Exam Cardiovascular Exam: REGULAR RHYTHM, +S1, +S2 - GI/Abdominal Exam GI & Abdominal Exam: Diminished Bowel Sounds, Soft. absent: Tenderness - Rectal Exam Rectal Exam: Deferred - Exam Exam: NORMAL INSPECTION - Extremities Exam Extremities exam: Negative for: pedal edema - Back Exam Back exam: absent: CVA tenderness (L), CVA tenderness (R) - Neurological Exam Neurological exam: Alert, Altered, CN II-XII Intact Additional comments: right sided weak - Psychiatric Exam Psychiatric exam: Depressed - Skin Skin Exam: Dry Results - Vital Signs Recent Vital Signs: Last Vital Signs Temp 99.0 F 11/16/16 09:12 Pulse 98 H 11/16/16 09:12 Resp 20 11/16/16 09:12 BP 95/61 L 11/16/16 09:49 Pulse Ox 95 11/16/16 09:12 - Labs Result Diagrams: 11/16/16 06:53 11/16/16 06:53 Labs: Laboratory Results - last 24 hr 11/15/16 11/15/16 11/15/16 19:19 19:19 19:20 WBC 20.3 H D RBC 3.65 L Hgb 12.2 Hct 35.8 MCV 98.3 H D MCH 33.5 H MCHC 34.1 RDW 13.6 Plt Count 272 MPV 7.1 L Neut % (Auto) 89.4 H Lymph % (Auto) 5.2 L [place] % (Auto) 5.2 Eos % (Auto) 0.0 Baso % (Auto) 0.2 Neut # 18.2 H Lymph # 1.1 [place] # 1.1 H Eos # 0.0 Baso # 0.0 Neutrophils % (Manual) 86 H Band Neutrophils % 5 H Lymphocytes % (Manual) 5 L Monocytes % (Manual) 4 Toxic Granulation Platelet Estimate Normal Hypochromasia (manual) Anisocytosis (manual) Slight pO2 25 L VBG pH 7.38 VBG pCO2 32 L VBG HCO3 19.4 VBG Total CO2 19.9 L VBG O2 Sat (Calc) 54.9 VBG Base Excess -5.2 L VBG Potassium 3.8 Glucose 113 H Lactate 1.3 Sodium 137 146.0 Potassium 4.2 Chloride 107 122.0 H Carbon Dioxide 19 L Anion Gap 15 BUN 26 H Creatinine 1.1 Est GFR ( Amer) > 60 Est GFR (Non-Af Amer) > 60 POC Glucose (mg/dL) Random Glucose 113 H Calcium 9.1 Total Bilirubin 0.9 AST 27 ALT 35 Alkaline Phosphatase 69 Total Protein 7.8 Albumin 3.7 Globulin 4.1 H Albumin/Globulin Ratio 0.9 L Venous Blood Potassium 3.8 Urine Color Urine Clarity Urine pH Ur Specific [place] Urine Protein Urine Glucose (UA) Urine Ketones Urine Blood Urine Nitrate Urine Bilirubin Urine Urobilinogen Ur Leukocyte Esterase Urine WBC (Auto) Urine RBC (Auto) Urine WBC Clumps (Auto) Urine Bacteria Phenytoin 11/15/16 11/16/16 11/16/16 20:35 01:54 06:53 WBC 17.6 H RBC 3.53 L Hgb 11.6 L Hct 34.8 L MCV 98.5 H MCH 32.9 H MCHC 33.4 RDW 13.7 Plt Count 268 MPV 7.2 Neut % (Auto) 90.4 H Lymph % (Auto) 5.7 L [place] % (Auto) 3.7 Eos % (Auto) 0.0 Baso % (Auto) 0.2 Neut # 15.9 H Lymph # 1.0 [place] # 0.7 Eos # 0.0 Baso # 0.0 Neutrophils % (Manual) 82 H Band Neutrophils % 5 H Lymphocytes % (Manual) 9 L Monocytes % (Manual) 4 Toxic Granulation Present Platelet Estimate Normal Hypochromasia (manual) Slight Anisocytosis (manual) pO2 VBG pH VBG pCO2 VBG HCO3 VBG Total CO2 VBG O2 Sat (Calc) VBG Base Excess VBG Potassium Glucose Lactate Sodium Potassium Chloride Carbon Dioxide Anion Gap BUN Creatinine Est GFR ( Amer) Est GFR (Non-Af Amer) POC Glucose (mg/dL) 138 H Random Glucose Calcium Total Bilirubin AST ALT Alkaline Phosphatase Total Protein Albumin Globulin Albumin/Globulin Ratio Venous Blood Potassium Urine Color Yellow Urine Clarity Turbid Urine pH 5.0 Ur Specific [place] 1.021 Urine Protein 2+ H Urine Glucose (UA) Normal Urine Ketones Trace Urine Blood Negative Urine Nitrate Negative Urine Bilirubin Negative Urine Urobilinogen 2.0 Ur Leukocyte Esterase 3+ H Urine WBC (Auto) 2890 H Urine RBC (Auto) 4 H Urine WBC Clumps (Auto) Many H Urine Bacteria Mod H Phenytoin 11/16/16 11/16/16 11/16/16 06:53 06:53 07:10 WBC RBC Hgb Hct MCV MCH MCHC RDW Plt Count MPV Neut % (Auto) Lymph % (Auto) [place] % (Auto) Eos % (Auto) Baso % (Auto) Neut # Lymph # [place] # Eos # Baso # Neutrophils % (Manual) Band Neutrophils % Lymphocytes % (Manual) Monocytes % (Manual) Toxic Granulation Platelet Estimate Hypochromasia (manual) Anisocytosis (manual) pO2 VBG pH VBG pCO2 VBG HCO3 VBG Total CO2 VBG O2 Sat (Calc) VBG Base Excess VBG Potassium Glucose Lactate Sodium 140 Potassium 3.3 L Chloride 110 H Carbon Dioxide 17 L Anion Gap 16 BUN 23 H Creatinine 1.1 Est GFR ( Amer) > 60 Est GFR (Non-Af Amer) > 60 POC Glucose (mg/dL) 118 H Random Glucose 105 Calcium 8.4 L Total Bilirubin 1.1 AST 21 ALT 27 Alkaline Phosphatase 74 Total Protein 7.4 Albumin 3.4 L Globulin 4.0 H Albumin/Globulin Ratio 0.9 L Venous Blood Potassium Urine Color Urine Clarity Urine pH Ur Specific [place] Urine Protein Urine Glucose (UA) Urine Ketones Urine Blood Urine Nitrate Urine Bilirubin Urine Urobilinogen Ur Leukocyte Esterase Urine WBC (Auto) Urine RBC (Auto) Urine WBC Clumps (Auto) Urine Bacteria Phenytoin 6.4 L 11/16/16 11:02 WBC RBC Hgb Hct MCV MCH MCHC RDW Plt Count MPV Neut % (Auto) Lymph % (Auto) [place] % (Auto) Eos % (Auto) Baso % (Auto) Neut # Lymph # [place] # Eos # Baso # Neutrophils % (Manual) Band Neutrophils % Lymphocytes % (Manual) Monocytes % (Manual) Toxic Granulation Platelet Estimate Hypochromasia (manual) Anisocytosis (manual) pO2 VBG pH VBG pCO2 VBG HCO3 VBG Total CO2 VBG O2 Sat (Calc) VBG Base Excess VBG Potassium Glucose Lactate Sodium Potassium Chloride Carbon Dioxide Anion Gap BUN Creatinine Est GFR ( Amer) Est GFR (Non-Af Amer) POC Glucose (mg/dL) 138 H Random Glucose Calcium Total Bilirubin AST ALT Alkaline Phosphatase Total Protein Albumin Globulin Albumin/Globulin Ratio Venous Blood Potassium Urine Color Urine Clarity Urine pH Ur Specific [place] Urine Protein Urine Glucose (UA) Urine Ketones Urine Blood Urine Nitrate Urine Bilirubin Urine Urobilinogen Ur Leukocyte Esterase Urine WBC (Auto) Urine RBC (Auto) Urine WBC Clumps (Auto) Urine Bacteria Phenytoin Assessment & Plan - Assessment and Plan (Free Text) Plan: r/o sepsis uti CVA aphasia cont iv rx await final c/s- can likely d/c vanco
[2016-11-16] MEDS: Sodium Chloride 0.9% 1,000 ML IV SCH (17:50)
[2016-11-16] MEDS: Potassium Chloride 20 mEq/15 ml LIQ UD PO SCH (18:10)
--- NOTE | 2016-11-16 21:35 | CARD ---
APPROVED REPORT EKG Measurement Heart [id number] <Conclusion> Sinus rhythm with occasional premature ventricular complexes Right bundle branch block Abnormal ECG
[2016-11-16 23:02] LABS: C DIFF TOXIN A B NEGATIVE (NEGATIVE)
[2016-11-16 23:22] LABS: FECAL LEUKOCYTES NEGATIVE (NEGATIVE)
[2016-11-17] MEDS: Piperacill/Tazo 3.375gm in Dex 3.375 GM/50 ML BAG IVPB SCH ×2 (03:17→10:30)
[2016-11-17] MEDS: Sodium Chloride 0.9% 1,000 ML IV SCH ×3 (04:30→21:24)
[2016-11-17] MEDS: Levothyroxine 125 MCG TAB PO SCH (05:58)
[2016-11-17 06:35] LABS: BASO % 0.4 % (0.0-2.0); EOS # 0.1 K/uL (0.0-0.7); EOS % 0.9 % (0.0-4.0); LYMPH # 1.3 K/uL (1.0-4.3); LYMPH % 12.1 % (20.0-40.0); MEAN CELL VOLUME 98.1 fL (80.0-94.0); MEAN CORPUSCULAR HEMOGLOBIN 33.9 pg (27.0-31.0); MEAN CORPUSCULAR HGB CONC 34.5 g/dL (33.0-37.0); MEAN PLATELET VOLUME 7.1 fL (7.2-11.7); MONO # 0.8 K/uL (0.0-0.8); MONO % 7.4 % (0.0-10.0); RED CELL DISTRIBUTION WIDTH 13.7 % (11.5-14.5); WHITE BLOOD COUNT 10.9 K/uL (4.8-10.8)
[2016-11-17 06:47] LABS: CHLORIDE 112 mmol/L (98-107); SODIUM 142 mmol/L (132-148)
[2016-11-17 06:49] LABS: ALB/GLOB RATIO 0.7 (1.0-2.1); ALKALINE PHOSPHATASE 52 U/L (38-126); AST/SGOT 16 U/L (17-59); BILIRUBIN,TOTAL 0.4 mg/dL (0.2-1.3); BLOOD UREA NITROGEN 21 mg/dL (9-20); CARBON DIOXIDE 17 mmol/L (22-30); GFR AFRICAN-AMERICAN > 60; TOTAL PROTEIN 6.7 g/dL (6.3-8.3)
[2016-11-17 06:50] LABS: ALT/SGPT 29 U/L (21-72); CALCIUM 8.1 mg/dl (8.6-10.4); GLUCOSE,RANDOM 96 mg/dL (75-110); MAGNESIUM 1.9 mg/dL (1.6-2.3); PHOSPHOROUS 2.3 mg/dL (2.5-4.5)
[2016-11-17] MEDS ORDERED: Potassium Chloride 20 mEq/15 ml LIQ UD PO SCH (10:00)
[2016-11-17] MEDS ORDERED: Potassium Chloride 20 mEq/15 ml LIQ UD PO ONE (10:00)
[2016-11-17] MEDS: Enoxaparin 40 mg Syringe SC SCH (10:19)
[2016-11-17] MEDS: Potassium & Sodium Phosphate PO SCH ×2 (10:21→17:40)
--- NOTE | 2016-11-17 10:27 | CP.PCM.PN ---
Subjective - Date & Time of Evaluation Date of Evaluation: 11/17/16 Time of Evaluation: 08:00 - Subjective Subjective: comfortable nad cultures noted cont monotherapy - cipro Objective - Vital Signs/Intake and Output Vital Signs (last 24 hours): Temp Pulse Resp BP Pulse Ox 97.5 F L 67 19 129/75 100 11/17/16 08:00 11/17/16 08:00 11/17/16 08:00 11/17/16 10:23 11/17/16 08:00 Intake and Output: 11/17/16 11/17/16 06:59 18:59 Intake Total 1820 Output Total 595 Balance 1225 - Medications Medications: Current Medications Acetaminophen (Tylenol 325mg Tab) 325 mg PO Q6H PRN PRN Reason: Fever >100.4 F Ascorbic Acid (Vitamin C 500 Mg Tab) 500 mg PO BID [facility] Last Admin: 11/17/16 10:20 Dose: 500 mg Clopidogrel Bisulfate (Plavix) 75 mg PO DAILY [facility] Last Admin: 11/17/16 10:20 Dose: 75 mg Enoxaparin Sodium (Lovenox) 40 mg SC DAILY [facility] Last Admin: 11/17/16 10:19 Dose: 40 mg Famotidine (Pepcid) 20 mg PO DAILY [facility] Last Admin: 11/17/16 10:19 Dose: 20 mg Finasteride (Proscar) 5 mg PO DAILY [facility] Last Admin: 11/17/16 10:20 Dose: 5 mg Folic Acid (Folic Acid) 1 mg PO DAILY [facility] Last Admin: 11/17/16 10:20 Dose: 1 mg Sodium Chloride (Sodium Chloride 0.9%) 1,000 mls @ 100 mls/hr IV .Q10H [facility] Last Admin: 11/17/16 04:30 Dose: 100 mls/hr Ciprofloxacin (Cipro 400mg/200ml Dsw) 400 mg in 200 mls @ 133 mls/hr IVPB Q12H [facility] Levothyroxine Sodium (Synthroid) 125 mcg PO DAILY@0630 [facility] Last Admin: 11/17/16 05:58 Dose: 125 mcg Metoprolol Tartrate (Lopressor) 25 mg PO DAILY [facility] Last Admin: 11/17/16 10:23 Dose: 25 mg Phenytoin Sodium (Dilantin) 100 mg PO QID [facility] Last Admin: 11/17/16 10:20 Dose: 100 mg Pneumococcal Polyvalent Vaccine (Pneumovax 23 Vaccine) 0.5 ml IM .ONCE ONE Stop: 11/18/16 10:01 Potassium Chloride (Potassium Chloride Oral Soln) 40 meq PO BID [facility] Stop: 11/17/16 10:46 Last Admin: 11/16/16 18:10 Dose: 40 meq Potassium Phos/Sodium Phos (Neutra-Phos) 1 pkt PO BID [facility] Stop: 11/18/16 10:01 Last Admin: 11/17/16 10:21 Dose: 1 pkt Tamsulosin HCl (Flomax) 0.4 mg PO DAILY [facility] Last Admin: 11/17/16 10:20 Dose: 0.4 mg - Labs Labs: 11/17/16 06:25 11/17/16 06:25 - Constitutional Appears: Non-toxic, Chronically Ill - Head Exam Head Exam: NORMOCEPHALIC - Eye Exam Eye Exam: absent: Scleral icterus - ENT Exam ENT Exam: Mucous Membranes Dry - Neck Exam Neck Exam: absent: Lymphadenopathy - Respiratory Exam Respiratory Exam: Decreased Breath Sounds - Cardiovascular Exam Cardiovascular Exam: REGULAR RHYTHM - GI/Abdominal Exam GI & Abdominal Exam: Distended, Soft Assessment and Plan (1) BPH (benign prostatic hyperplasia) Status: Acute (2) Fever Status: Acute (3) Sepsis Status: Acute (4) UTI (urinary tract infection) Status: Acute
--- NOTE | 2016-11-17 10:51 | VASCLAB ---
PROCEDURE: Lower Extremity Venous Duplex Exam. HISTORY: Swelling PRIORS: No previous vascular exams. TECHNIQUE: Bilateral common femoral, femoral, popliteal and posterior tibial, peroneal and great saphenous veins were evaluated. Flow was assessed with color Doppler, compressibility, assessment of phasic flow and augmentation response. Report prepared by URIEL Mcekon FINDINGS: RIGHT: 1. Common Femoral Vein: 1.1. Compressibility - Fully compressible: Thrombus - None : Flow - Phasic: Augmentation -Normal: Reflux - None. 2. Femoral Vein: 2.1. Compressibility - Fully compressible: Thrombus - None : Flow - Phasic: Augmentation -Normal: Reflux - None. 3. Popliteal Vein: 3.1. Compressibility - Fully compressible: Thrombus - None : Flow - Phasic: Augmentation -Normal: Reflux - None. 4. Posterior Tibial Vein: 4.1. Compressibility - Fully compressible: Thrombus - None: Flow - Phasic: Augmentation -Normal: Reflux - None. 5. Peroneal Vein: 5.1. Compressibility - Fully compressible: Thrombus - None: Flow - Phasic: Augmentation -Normal: Reflux - None. 6. Great Saphenous Vein: 6.1. Compressibility - Fully compressible: Thrombus - None: Flow - Phasic: Augmentation - Normal: Reflux - None. LEFT: 1. Common Femoral Vein: 1.1. Compressibility - Fully compressible: Thrombus - None: Flow - Phasic: Augmentation -Normal: Reflux - None. 2. Femoral Vein: 2.1. Compressibility - Fully compressible: Thrombus - None: Flow - Phasic: Augmentation -Normal: Reflux - None. 3. Popliteal Vein: 3.1. Compressibility - Fully compressible: Thrombus - None : Flow - Phasic: Augmentation -Normal: Reflux - None. 4. Posterior Tibial Vein: 4.1. Compressibility - Fully compressible: Thrombus - None: Flow - Phasic: Augmentation -Normal: Reflux - None. 5. Peroneal Vein: 5.1. Compressibility - Fully compressible: Thrombus - None: Flow - Phasic: Augmentation -Normal: Reflux - None. 6. Great Saphenous Vein: 6.1. Compressibility - Fully compressible: Thrombus - None: Flow - Phasic: Augmentation - Normal: Reflux - None. OTHER FINDINGS: Right: None significant. Left: None significant. IMPRESSION: Right: No evidence of deep or superficial vein thrombosis of the right lower extremity. Normal valve function noted of the right side. Left: No evidence of deep or superficial vein thrombosis of the left lower extremity. Normal valve function noted of the left side.
[2016-11-17] MEDS: Ciprofloxacin 400mg/200ml D5W 400 MG/200 ML BAG IVPB SCH ×2 (10:54→21:25)
[2016-11-17] MEDS: Potassium Chloride 20 mEq/15 ml LIQ UD PO SCH (10:56)
--- NOTE | 2016-11-17 13:37 | PN ---
SUBJECTIVE: I know Osbaldo for a few years now at the [facility]. I was away the past 2 days in [place] and asked the hospitalists to take care of the patient for me, thank them a lot. I put him back on my service. He is comfortable on bed. His eyes are open. He looks fairly stable, back to his baseline. He is currently on Dilantin; Flomax; folic acid; Lopressor; Lovenox; Zosyn; Plavix; potassium replacement; Proscar; IV fluids at 100, I will back that down to 60; Synthroid; Tylenol; vancomycin; and vitamin C. We checking his labs. PHYSICAL EXAMINATION: VITAL SIGNS: 97.9 temp, 71 pulse, 113/60 blood pressure, 20 respiratory rate and 99% O2 sat on room air. HEENT: Head is atraumatic and normocephalic. He is nonverbal, but he is looking at me with his eyes open wide, back to his baseline, trying to respond with a nonverbal voice. HEART: Regular rate. LUNGS: Clear to auscultation. ABDOMEN: Soft. EXTREMITIES: No edema, left-sided old CVA, right-sided weakness. LABORATORY DATA: He has 140 sodium; potassium is 3.3, was replaced; BUN 22, and creatinine 1.1. GFR is greater than 60 and last blood sugar was 165. Calcium is 8.4, total bili is 1.1. AST is 21, ALT is 27, alk phos is 74 and total protein is 7.4. White count is down to 17.6, when he came in, it was 20 with 11.6 hemoglobin, 34.8 hematocrit with 268 platelets. His urine with 3+ leukocytes, many bacteria. Stool is negative. C. diff negative. ASSESSMENT AND PLAN: He is being seen by Infectious Disease. He is on IV antibiotics. He has small bibasilar opacities, likely atelectasis in the lungs. He has urinary tract infection, elevated white count, systemic inflammatory response syndrome. Duplex artery scan is pending. We checking his labs tomorrow. We will continue with aggressive treatment and care. Thony Mojica DO
[2016-11-17 16:35] VITALS: RESP 20
--- NOTE | 2016-11-17 22:57 | CARD ---
APPROVED REPORT EXAM: Two-dimensional and M-mode echocardiogram with Doppler and color Doppler. Other Information Quality : Technically LimitedRhythm : NSR INDICATION Abnormal EKG/Arrhythmia CVA/TIA Atrial Fibrillation Cardiac Disease: CAD Congestive Heart Failure RISK FACTORS Hypertension Hyperlipidemia M-Mode DIMENSIONS IVSd0.66 (0.7-1.1cm)LVDd6.79 (4.0-5.6cm) PWd0.66 (0.7-1.1cm)FS (%) 24 % LVDs5.19 (2.0-3.8cm)LVEF (%)46 (>50%) Aortic Valve AoV Peak Jdiuhrmt669.8cm/Val Peak GR.8mmHg Mitral Valve MV E Gcwvbbqb268.0cm/sMV A Fgbvulpp61.8cm/sE/A ratio1.2 TDI E/Lateral E'0.0E/Medial E'0.0 Tricuspid Valve TR Peak [id number]/sTR Peak [id number] LEFT VENTRICLE The Left Ventricle is mildly dilated. There is normal left ventricular wall thickness. Left ventricle systolic function is normal. The Ejection Fraction is 50-55%. There is normal LV segmental wall motion. The left ventricular diastolic function is normal. RIGHT VENTRICLE The right ventricle is normal size. There is normal right ventricular wall thickness. The right ventricular systolic function is normal. There is a pacemaker lead in the right ventricle. ATRIA The left atrium size is normal. The right atrium size is normal. The interatrial septum is intact with no evidence for an atrial septal defect. AORTIC VALVE The aortic valve is normal in structure. No aortic regurgitation is present. There is no aortic valvular stenosis. MITRAL VALVE The mitral valve is normal in structure. There is no evidence of mitral valve prolapse. There is no mitral valve stenosis. Mitral regurgitation is mild. TRICUSPID VALVE The tricuspid valve is normal in structure. There is trace to mild tricuspid regurgitation. Right ventricular systolic pressure is estimated at less than 30 mmHg. There is no pulmonary hypertension. PULMONIC VALVE The pulmonic valve is not well visualized. There is no pulmonic valvular regurgitation. GREAT VESSELS The aortic root is normal in size. PERICARDIAL EFFUSION There is no significant pericardial effusion. <Conclusion> Left ventricle systolic function is normal. The Ejection Fraction is 50-55%. No aortic regurgitation is present. Mitral regurgitation is mild. There is trace to mild tricuspid regurgitation. There is no pulmonary hypertension. There is no pulmonic valvular regurgitation. There is a pacemaker lead in the right ventricle.
[2016-11-18] MEDS: Levothyroxine 125 MCG TAB PO SCH (06:24)
[2016-11-18 06:42] LABS: BASO % 0.5 % (0.0-2.0); EOS # 0.2 K/uL (0.0-0.7); EOS % 2.1 % (0.0-4.0); HEMATOCRIT 29.3 % (35.0-51.0); LYMPH % 22.9 % (20.0-40.0); MEAN CELL VOLUME 98.1 fL (80.0-94.0); MEAN CORPUSCULAR HEMOGLOBIN 33.7 pg (27.0-31.0); MEAN CORPUSCULAR HGB CONC 34.4 g/dL (33.0-37.0); MEAN PLATELET VOLUME 7.4 fL (7.2-11.7); MONO # 0.6 K/uL (0.0-0.8); MONO % 7.4 % (0.0-10.0); NRBC % 0.1 % (0.0-2.0); RED CELL DISTRIBUTION WIDTH 13.6 % (11.5-14.5); WHITE BLOOD COUNT 8.7 K/uL (4.8-10.8)
[2016-11-18 06:50] LABS: CHLORIDE 111 mmol/L (98-107)
[2016-11-18 06:51] LABS: POTASSIUM 3.1 mmol/L (3.6-5.2); SODIUM 140 mmol/L (132-148)
[2016-11-18 06:53] LABS: ALB/GLOB RATIO 0.7 (1.0-2.1); ALKALINE PHOSPHATASE 48 U/L (38-126); ALT/SGPT 25 U/L (21-72); AST/SGOT 19 U/L (17-59); BILIRUBIN,TOTAL 0.3 mg/dL (0.2-1.3); BLOOD UREA NITROGEN 16 mg/dL (9-20); CARBON DIOXIDE 18 mmol/L (22-30); GFR AFRICAN-AMERICAN > 60; GLUCOSE,RANDOM 90 mg/dL (75-110); TOTAL PROTEIN 6.4 g/dL (6.3-8.3)
[2016-11-18 06:54] LABS: CALCIUM 7.8 mg/dl (8.6-10.4); MAGNESIUM 1.7 mg/dL (1.6-2.3); PHOSPHOROUS 2.3 mg/dL (2.5-4.5)
--- NOTE | 2016-11-18 08:59 | PN ---
DATE: SUBJECTIVE: He is resting comfortably in bed, slept very well last night, much more alert. Almost back to his old self. PHYSICAL EXAMINATION: GENERAL: He is comfortable, in no acute distress. VITAL SIGNS: He has 97.5 temperature, 65 pulse, 117/69 blood pressure, 20 respiratory rate, 98% O2 saturation on room air. HEENT: Head is atraumatic and normocephalic. HEART: Regular rate. LUNGS: Decreased breath sounds, but clear. ABDOMEN: Soft. EXTREMITIES: No edema. 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 MEDICATIONS: He is currently on Cipro IV, Dilantin, Flomax, folic acid, Lopressor, Lovenox, Neutra-Phos, Pepcid, Plavix. LABORATORY DATA: Labs yesterday is 142 sodium, potassium is 3, he was replaced with potassium, BUN 21, creatinine 1.1. GFR is greater than 60, sugar is 96, calcium is 8.1, total bilirubin is 0.4, phosphorus is 2.3, magnesium is 1.9, AST is 16, ALT is 29, alkaline phosphatase is 52, total protein is 6.7. White count is down to 10.9 from where it has been, hemoglobin 10, hematocrit 29, platelets 200. ASSESSMENT AND PLAN: He is being seen by Infectious Disease. IV antibiotics were changed. When I can change him to tablets, I will discharge him as per Infectious Disease. I will send him back to [facility] where he lives and he is cared. Nursing and his takes very good care of him there. He is improving greatly. Hopefully either today or within next 24 hours, we will be discharging him back to [facility], once we clear with Infectious Disease. He had sepsis as per Infectious Disease, urinary tract infection, 20,000 white count, cerebrovascular accident, aphasia. Thony Mojica DO
[2016-11-18] MEDS ORDERED: Influenza Vaccine 60 mcg/0.5 mL SYR (4YR UP) IM ONE (10:00)
[2016-11-18] MEDS ORDERED: Pneumococcal 23-Valent Vaccine IM ONE (10:00)
[2016-11-18] MEDS: Enoxaparin 40 mg Syringe SC SCH (10:52)
[2016-11-18] MEDS: Potassium & Sodium Phosphate PO SCH (10:52)
[2016-11-18] MEDS: Ciprofloxacin 400mg/200ml D5W 400 MG/200 ML BAG IVPB SCH ×2 (11:00→22:19)
[2016-11-18] MEDS: Sodium Chloride 0.9% 1,000 ML IV SCH ×3 (11:15→22:24)
--- NOTE | 2016-11-18 11:29 | CP.PCM.PN ---
Subjective - Date & Time of Evaluation Date of Evaluation: 11/18/16 Time of Evaluation: 11:29 - Subjective Subjective: Awake, confused, no sob or acute distress. Objective - Vital Signs/Intake and Output Vital Signs (last 24 hours): Temp Pulse Resp BP Pulse Ox 97.3 F L 62 20 112/62 95 11/18/16 07:30 11/18/16 07:30 11/18/16 07:30 11/18/16 10:58 11/18/16 07:30 Intake and Output: 11/18/16 11/18/16 06:59 18:59 Intake Total 1780 Output Total 500 Balance 1280 - Medications Medications: Current Medications Acetaminophen (Tylenol 325mg Tab) 325 mg PO Q6H PRN PRN Reason: Fever >100.4 F Ascorbic Acid (Vitamin C 500 Mg Tab) 500 mg PO BID [facility] Last Admin: 11/18/16 10:51 Dose: 500 mg Clopidogrel Bisulfate (Plavix) 75 mg PO DAILY [facility] Last Admin: 11/18/16 10:51 Dose: 75 mg Enoxaparin Sodium (Lovenox) 40 mg SC DAILY [facility] Last Admin: 11/18/16 10:52 Dose: 40 mg Famotidine (Pepcid) 20 mg PO DAILY [facility] Last Admin: 11/18/16 10:53 Dose: 20 mg Finasteride (Proscar) 5 mg PO DAILY [facility] Last Admin: 11/18/16 10:52 Dose: 5 mg Folic Acid (Folic Acid) 1 mg PO DAILY [facility] Last Admin: 11/18/16 10:51 Dose: 1 mg Sodium Chloride (Sodium Chloride 0.9%) 1,000 mls @ 100 mls/hr IV .Q10H [facility] Last Admin: 11/18/16 11:15 Dose: Not Given Ciprofloxacin (Cipro 400mg/200ml Dsw) 400 mg in 200 mls @ 133 mls/hr IVPB Q12H [facility] Last Admin: 11/18/16 11:00 Dose: Not Given Levothyroxine Sodium (Synthroid) 125 mcg PO DAILY@0630 [facility] Last Admin: 11/18/16 06:24 Dose: 125 mcg Metoprolol Tartrate (Lopressor) 25 mg PO DAILY [facility] Last Admin: 11/18/16 10:58 Dose: 25 mg Phenytoin Sodium (Dilantin) 100 mg PO QID [facility] Last Admin: 11/18/16 10:51 Dose: 100 mg Potassium Chloride (Potassium Chloride Oral Soln) 40 meq PO ONCE ONE Stop: 11/18/16 12:01 Tamsulosin HCl (Flomax) 0.4 mg PO DAILY [facility] Last Admin: 11/18/16 10:56 Dose: 0.4 mg - Labs Labs: 11/18/16 06:19 11/18/16 06:19 Assessment and Plan - Assessment and Plan (Free Text) Assessment: Patient is seen and examined. Awake, confused, no sob or acute distress. D/W DR Armendariz and DR Mojica, plan to discharge back to [facility] today on cipro 500mg po BID for 7 days. Will continue with gayle catheter for now.
[2016-11-18] MEDS ORDERED: Potassium Chloride 20 mEq/15 ml LIQ UD PO ONE (12:00)
--- NOTE | 2016-11-18 12:21 | CP.PCM.PN ---
Subjective - Date & Time of Evaluation Date of Evaluation: 11/18/16 Time of Evaluation: 07:00 - Subjective Subjective: afebrile no distress cont iv rx for 7 days more Objective - Vital Signs/Intake and Output Vital Signs (last 24 hours): Temp Pulse Resp BP Pulse Ox 97.3 F L 62 20 112/62 95 11/18/16 07:30 11/18/16 07:30 11/18/16 07:30 11/18/16 10:58 11/18/16 07:30 Intake and Output: 11/18/16 11/18/16 06:59 18:59 Intake Total 1780 Output Total 500 Balance 1280 - Medications Medications: Current Medications Acetaminophen (Tylenol 325mg Tab) 325 mg PO Q6H PRN PRN Reason: Fever >100.4 F Ascorbic Acid (Vitamin C 500 Mg Tab) 500 mg PO BID [facility] Last Admin: 11/18/16 10:51 Dose: 500 mg Clopidogrel Bisulfate (Plavix) 75 mg PO DAILY [facility] Last Admin: 11/18/16 10:51 Dose: 75 mg Enoxaparin Sodium (Lovenox) 40 mg SC DAILY [facility] Last Admin: 11/18/16 10:52 Dose: 40 mg Famotidine (Pepcid) 20 mg PO DAILY [facility] Last Admin: 11/18/16 10:53 Dose: 20 mg Finasteride (Proscar) 5 mg PO DAILY [facility] Last Admin: 11/18/16 10:52 Dose: 5 mg Folic Acid (Folic Acid) 1 mg PO DAILY [facility] Last Admin: 11/18/16 10:51 Dose: 1 mg Sodium Chloride (Sodium Chloride 0.9%) 1,000 mls @ 100 mls/hr IV .Q10H [facility] Last Admin: 11/18/16 11:15 Dose: Not Given Ciprofloxacin (Cipro 400mg/200ml Dsw) 400 mg in 200 mls @ 133 mls/hr IVPB Q12H [facility] Last Admin: 11/18/16 11:00 Dose: Not Given Levothyroxine Sodium (Synthroid) 125 mcg PO DAILY@0630 [facility] Last Admin: 11/18/16 06:24 Dose: 125 mcg Metoprolol Tartrate (Lopressor) 25 mg PO DAILY [facility] Last Admin: 11/18/16 10:58 Dose: 25 mg Phenytoin Sodium (Dilantin) 100 mg PO QID [facility] Last Admin: 11/18/16 10:51 Dose: 100 mg Tamsulosin HCl (Flomax) 0.4 mg PO DAILY [facility] Last Admin: 11/18/16 10:56 Dose: 0.4 mg - Labs Labs: 11/18/16 06:19 11/18/16 06:19 - Constitutional Appears: Non-toxic, Chronically Ill - Head Exam Head Exam: NORMOCEPHALIC - Eye Exam Eye Exam: PERRL - ENT Exam ENT Exam: Mucous Membranes Dry - Neck Exam Neck Exam: absent: Lymphadenopathy - Respiratory Exam Respiratory Exam: Decreased Breath Sounds - Cardiovascular Exam Cardiovascular Exam: REGULAR RHYTHM - GI/Abdominal Exam GI & Abdominal Exam: Distended, Soft - Rectal Exam Rectal Exam: Deferred - Exam Exam: NORMAL INSPECTION - Extremities Exam Extremities Exam: absent: Pedal Edema - Back Exam Back Exam: absent: CVA tenderness (L), CVA tenderness (R) - Neurological Exam Neurological Exam: Alert, Awake Neuro motor strength exam: Left Upper Extremity: 4, Right Upper Extremity: 0, Left Lower Extremity: 4, Right Lower Extremity: 0 - Psychiatric Exam Psychiatric exam: Normal Mood - Skin Skin Exam: Dry Assessment and Plan (1) BPH (benign prostatic hyperplasia) Status: Acute (2) Fever Status: Acute (3) Sepsis Status: Acute (4) UTI (urinary tract infection) Status: Acute
[2016-11-18 13:45] LABS: RBC URINE 3 /hpf (0-3); URINE BACTERIA RARE (<OCC); URINE BILIRUBIN NEGATIVE (NEGATIVE); URINE BLOOD NEGATIVE (NEGATIVE); URINE COLOR Yellow (YELLOW); URINE GLUCOSE (UA) NORMAL (Normal); URINE KETONE NEGATIVE (NEGATIVE); URINE LEUKOCYTE ESTERASE 3+ Leu/uL (Negative); URINE PROTEIN 1+ mg/dL (NEGATIVE); WBC URINE 53 /hpf (0-5)
[2016-11-19] MEDS: Levothyroxine 125 MCG TAB PO SCH (05:33)
[2016-11-19 08:12] VITALS: BP 147/75; PULSE 61; TEMP 97.6; O2SAT 97
[2016-11-19] MEDS: Enoxaparin 40 mg Syringe SC SCH (09:30)
[2016-11-19] MEDS ORDERED: Potassium Chloride 20 mEq ER Tab PO SCH (10:00)
[2016-11-19] MEDS: Ciprofloxacin 400mg/200ml D5W 400 MG/200 ML BAG IVPB SCH (10:00)
--- NOTE | 2016-11-19 16:51 | PCM.HF ---
Heart Failure Core Measure - Heart Failure Ejection Fraction: 40 % or Greater YARELY Inhibitor Prescribed: No Contraindication/Reason for not providing: EF >40 Beta-Heidi Prescribed: Metoprolol Succinate Angiotensin II Receptor Heidi Prescribed: No Contraindication/Reason for not providing: EF >40 AnticoagulationTherapy for Atrial Fibrillation/Atrialflutter: No Contraindication/Reason for not providing: RATE CONTROLLED Hydralazine Nitrate Prescribed: No Contraindication/Reason for not providing: EF >40 Implantable Cardioverter Defibrillator Therapy: Yes Cardiac Resynchronization Therapy Prescribed: No Contraindication/Reason for not providing: EF >40 AND PACEMAKER - Follow up Will be discharged to: [facility] ([facility]
--- NOTE | 2016-11-20 09:10 | DS ---
HISTORY OF PRESENT ILLNESS: I saw Osbaldo saucedo awake in bed. I could not get blood samples drawn because of a Whitmore catheter draining clear urine. He looks almost back to his baseline. I will replace potassium for a low potassium and put him on K-Dur 20 mEq one p.r.n.. PHYSICAL EXAMINATION: VITAL SIGNS: He has 98.2 temperature, pulse of 47, blood pressure 127/49, respiratory rate 19, and oxygen saturation 97% on room air . HEENT: Head is atraumatic, normocephalic. GENERAL: He is awake, alert and smiling. HEART: Regular rate. LUNGS: Decreased breath sounds, but clear. ABDOMEN: Soft, obese and nontender. EXTREMITIES: No edema. 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 MEDICATIONS AT HOME: IV Cipro, p.o. Dilantin, Flomax, folic acid, Lopressor, Lovenox, Pepcid, Plavix, Proscar. Synthroid has been added at 75 mcg in the a.m. Trazodone . PLAN: The patient goes back with a Whitmore catheter, he was not giving out urine yesterday. on p.o. Cipro for 1 more week. hTony Mojica DO MTDD
== END 2016-11-19 11:30 | DRG 872 ==
LOC: C.ER 18:13 → C.3T 21:30
PROVIDERS: ADMIT Family Medicine; ATTEND Family Medicine
DX: A41.9 Sepsis, unspecified organism (principal); L89.159 Pressure ulcer of sacral region, unspecified stage; I11.0 Hypertensive heart disease with heart failure; G20 Parkinson's disease; F03.90 Unspecified dementia, unspecified severity, without behavioral disturbance, psychotic disturbance, mood disturbance, and anxiety; I50.9 Heart failure, unspecified; I69.351 Hemiplegia and hemiparesis following cerebral infarction affecting right dominant side; N39.0 Urinary tract infection, site not specified; J98.11 Atelectasis; G40.909 Epilepsy, unspecified, not intractable, without status epilepticus; I48.91 Unspecified atrial fibrillation; E87.6 Hypokalemia; J44.9 Chronic obstructive pulmonary disease, unspecified; E03.9 Hypothyroidism, unspecified; I25.10 Atherosclerotic heart disease of native coronary artery without angina pectoris; I69.320 Aphasia following cerebral infarction; E78.00 Pure hypercholesterolemia, unspecified; N40.0 Benign prostatic hyperplasia without lower urinary tract symptoms; Z66 Do not resuscitate; Z87.891 Personal history of nicotine dependence; Z95.0 Presence of cardiac pacemaker

== ENCOUNTER 2017-09-05 19:36 | Emergency (ER) | payer MEDICARE ==
[2017-09-05 19:36] VITALS: BMI 23.0
[2017-09-05 19:59] VITALS: RESP 18; TEMP 98; O2SAT 98
[2017-09-05] MEDS ORDERED: Absorbable Gelatin Sponge Size 12-7 MM STA (20:08)
[2017-09-05] MEDS ORDERED: Absorbable Gelatin Sponge Size 12-7 ONE (20:11)
--- NOTE | 2017-09-05 20:27 | C.PDOC ---
History Of Present Illness Pt apparently had his right hand injured with a wheelchair yesterday. He developed wound on his right 5th finger. Pt's son states x-rays were done at the halfway that were negative for fx, however pt is here because wound is still bleeding. Time Seen by Provider: 09/05/17 20:01 Chief Complaint (Nursing): Abnormal Skin Integrity History Per: Patient, Family (Son) Onset/Duration Of Symptoms: Days (1) Current Symptoms Are (Timing): Still Present Location Of Injury: Right: Hand (5th finger) Quality Of Symptoms: Other (bleeding) Severity: Mild Additional History Per: Intermediate, Prior Records Past Medical History Reviewed: Historical Data, Nursing Documentation, Vital Signs Vital Signs: Last Vital Signs Temp 98 F 09/05/17 19:55 Pulse 72 09/05/17 19:55 Resp 18 09/05/17 19:55 BP 142/82 09/05/17 19:55 Pulse Ox 98 09/05/17 19:55 - Medical History PMH: Arthritis (Osteoarthritis), Atrial Fibrillation, Benign Prostatic Hyperplasia, CAD, CHF, COPD, CVA (affecting right side and speech), Dementia, HTN, Hypercholesterolemia, Hypothyroidism, Parkinson's Disease ((?)) Surgical History: Pacemaker - [facility] Procedures CIRCUMCISION (01/03/14) CYSTOSCOPY NEC (01/03/14) INSERT INTESTINAL TUBE (01/03/14) Family History: States: Unknown Family Hx - Social History Hx Tobacco Use: No Hx Alcohol Use: No Hx Substance Use: No - Immunization History Hx Tetanus Toxoid Vaccination: No Hx Influenza Vaccination: No Hx Pneumococcal Vaccination: No Review Of Systems Review Of Systems: ROS cannot be obtained secondary to pt's inabilty to answer questions. Physical Exam - Physical Exam Appears: Non-toxic, No Acute Distress Skin: Warm, Dry Head: Atraumatic Neck: Normal ROM Extremity: Other (Pt has contracture of his right hand due to previous CVA. There is a skin tear on volar aspect of distal phalanx of right 5th finger. No active bleeding, however there is trace blood if you dab it with a gauze. ) Pulses: Right Radial: Normal Neurological/Psych: No Normal Motor (right side paralysis due to old stroke) ED Course And Treatment O2 Sat by Pulse Oximetry: 98 Pulse Ox Interpretation: Normal Progress Note: A piece of gel foam was placed on wound and then the would was dressed with gauze cling. Disposition Counseled Patient/Family Regarding: Diagnosis, Need For Followup, Rx Given - Disposition Referrals: Thony Mojica DO [Staff Provider] - Disposition: TRANSF TO SNF Disposition Time: 20:31 Condition: STABLE Additional Instructions: Keep wound dressed. Remove dressing in 2 days and change with standard dressing. Take prophylactic antibiotic for 5 days. Prescriptions: Cephalexin [Keflex] 500 mg PO TID #15 capsule Instructions: Common Finger Injuries (DC) - Clinical Impression Clinical Impression: Open wound of right little finger without damage to nail
[2017-09-05 21:08] VITALS: BP 160/75; PULSE 78
== END 2017-09-05 21:31 ==
LOC: C.ER 19:36
DX: S61.206A Unspecified open wound of right little finger without damage to nail, initial encounter (principal); X58.XXXA Exposure to other specified factors, initial encounter; Y92.129 Unspecified place in nursing home as the place of occurrence of the external cause

== ENCOUNTER 2018-03-09 16:01 | Inpatient (IN) | payer MEDICARE ==
[2018-03-09 16:01] VITALS: BMI 23.0
--- NOTE | 2018-03-09 16:35 | C.PDOC ---
History Of Present Illness INCR DIFFICULTY SWALLOWING, NOW UNABLE TO SWALLOW SP FAILED OUTPT SWALLOW SCREEN. REFERRED FOR POSSIBLE G TUBE PLACE. HO CVA. DOES NOT FEED SELF OR WALK. NO RECENT WT LOSS. PT CURRENTLY @ BASELINE PER FAMILY EXAM NAD ABD NEG NEURO CHRONIC R SIDED HEMIPARESIS ALERT APPROPRIATELY INTERACTIVE W FAMILY REMAINDER NEG Time Seen by Provider: 03/09/18 16:18 Chief Complaint (Nursing): Medical Clearance History Per: Family History/Exam Limitations: no limitations Onset/Duration Of Symptoms: Days Current Symptoms Are (Timing): Still Present Past Medical History Reviewed: Historical Data, Nursing Documentation, Vital Signs Vital Signs: Last Vital Signs Temp 97.7 F 03/09/18 16:16 Pulse 73 03/09/18 16:16 Resp 23 03/09/18 16:16 BP 155/84 H 03/09/18 16:16 Pulse Ox 99 03/09/18 16:16 - Medical History PMH: Arthritis (Osteoarthritis), Atrial Fibrillation, Benign Prostatic Hyperplasia, CAD, CHF, COPD, CVA (affecting right side and speech), Dementia, HTN, Hypercholesterolemia, Hypothyroidism, Parkinson's Disease ((?)) Denies: Chronic Kidney Disease Surgical History: Pacemaker - [facility] Procedures CIRCUMCISION (01/03/14) CYSTOSCOPY NEC (01/03/14) INSERT INTESTINAL TUBE (01/03/14) Family History: States: No Known Family Hx - Social History Hx Tobacco Use: No Hx Alcohol Use: No Hx Substance Use: No - Immunization History Hx Tetanus Toxoid Vaccination: No Hx Influenza Vaccination: No Hx Pneumococcal Vaccination: No Review Of Systems Except As Marked, All Systems Reviewed And Found Negative. Constitutional: Negative for: Fever, Chills, Weight loss ENT: Positive for: Other (difficulty swallowing) Gastrointestinal: Negative for: Nausea, Vomiting, Abdominal Pain Physical Exam - Physical Exam Appears: No Acute Distress Skin: Normal Color, Warm, Dry Head: Atraumatic, Normacephalic Eye(s): bilateral: Normal Inspection Cardiovascular: Rhythm Regular Respiratory: Other (NARD) Gastrointestinal/Abdominal: Normal Exam, Soft, No Tenderness, No Guarding, No Rebound Neurological/Psych: Other (chronic right sided hemiparesis, alert, appropriately interactive with family) ED Course And Treatment - Laboratory Results Result Diagrams: 03/09/18 16:53 03/09/18 16:53 O2 Sat by Pulse Oximetry: 99 (RA) Pulse Ox Interpretation: Normal Progress - Re-Evaluation Re-evaluation Note: 03/09/18 16:35 D/W DR FALCON: STATES PT FAMILY WANTED SECOND OPINION DESPITE ALREADY FAILED SWALLOW SCREEN. WILL ADMIT IF PT FAILS REPEAT SCREEN AND FAMILY CONSENTS FOR PROCEDURE 03/09/18 16:44 FAILED SWALLOW SCREEN. FAMILY CONSENTS FOR PROCEDURE D/W DR Loly FALCON WILL ADMIT. CONSULT DR RENNER - Data Reviewed Data Reviewed: Lab, Diagnostic imaging, EKG, Old records Medical Decision Making Medical Decision Making: Plan: --Labs --CXR --IV Fluids Disposition Counseled Patient/Family Regarding: Studies Performed, Diagnosis - Disposition Disposition: HOSPITALIZED Disposition Time: 16:45 Condition: STABLE - POA Present On Arrival: None - Clinical Impression Clinical Impression: Difficulty swallowing - Scribe Statement The provider has reviewed the documentation as recorded by the Scribe Sheron Silverman Provider Attestation: All medical record entries made by the Scribe were at my direction and personal ly dictated by me. I have reviewed the chart and agree that the record accurately reflects my personal performance of the history, physical exam, medical decision making, and the department course for this patient. I have also personally directed, reviewed, and agree with the discharge instructions and disposition.
[2018-03-09] MEDS ORDERED: Sodium Chloride 0.9% 1,000 ML IV SCH (17:00)
[2018-03-09 17:04] LABS: BASO % 0.5 % (0.0-2.0); EOS # 0.1 K/uL (0.0-0.7); EOS % 1.4 % (0.0-4.0); HEMOGLOBIN 14.4 g/dL (12.0-18.0); LYMPH # 1.3 K/uL (1.0-4.3); LYMPH % 16.6 % (20.0-40.0); MEAN CORPUSCULAR HGB CONC 32.7 g/dL (33.0-37.0); MEAN PLATELET VOLUME 7.3 fL (7.2-11.7); MONO # 0.8 K/uL (0.0-0.8); MONO % 10.5 % (0.0-10.0); NEUT # 5.4 K/uL (1.8-7.0); NRBC % 0.1 % (0.0-2.0); RBC 4.5 Mil/uL (4.40-5.90); RED CELL DISTRIBUTION WIDTH 13.7 % (11.5-14.5); WHITE BLOOD COUNT 7.6 K/uL (4.8-10.8)
[2018-03-09 17:16] LABS: INR 1.1; PROTHROMBIN TIME 12.3 SECONDS (9.7-12.2)
[2018-03-09 17:24] LABS: BLOOD UREA NITROGEN 31 mg/dL (9-20); CALCIUM 9.7 mg/dl (8.6-10.4); GFR NON-AFRICAN AMERICAN > 60
[2018-03-09] MEDS ORDERED: Sodium Chloride 0.9% 1,000 ML ONE (17:29)
[2018-03-09] MEDS: Sodium Chloride 0.45% 1,000 ML IV SCH (19:24)
--- NOTE | 2018-03-10 04:25 | HP ---
HISTORY OF PRESENT ILLNESS: He has been having a problem at the [facility] where he lives permanently. He started not swallowing recently. He had three swallow evals in the past week and failed in all. He is having weight loss. He almost had some aspiration, but he coughed it up. Awaiting for chest x-ray to come back. Per my plan and after talking to the , we are going to do a PEG tube tomorrow morning and then discharge him tomorrow afternoon. He did not feed himself. He has an old CVA. He does not talk. He has got expressive aphasia from the stroke and right-sided hemiparesis. He does make his needs no known. PAST MEDICAL HISTORY: He has a past medical history of BPH, hypothyroid, hypertension, old stroke, low vitamin D, vitamin B12 deficiency. History of osteoarthritis, atrial fibrillation, CAD, CHF, COPD, CVA with right-sided paralysis, dysarthria, dementia, hypercholesterolemia, hypothyroidism, Parkinson's disease, chronic kidney disease. PAST SURGICAL HISTORY: He has a pacemaker. He had a circumcision, cystoscopy, insertion of intestinal tube at one time. SOCIAL HISTORY: Nonsmoker, nondrinker, no drugs. FAMILY HISTORY: Hypertension in the family. Unknown family history. ALLERGIES: HE HAS NO KNOWN DRUG ALLERGIES. He has had some skin issues in the past. I think, right now the skin is pretty much intact. He is here in observation for PEG tube feeding by Dr. Mar, the in service educator. REVIEW OF SYSTEMS: He is at his baseline. He looks little bit thinner since he has not eaten a week, but he is alert. He knew me. He is tired. We cannot do review of systems because he is nonverbal. He has not eaten and failed the swallow eval. PHYSICAL EXAMINATION: VITAL SIGNS: He has 97.7 temperature, 73 pulse, 22 respiratory rate, 155/84 blood pressure, and 99% O2 sat. HEENT: Head is atraumatic and normocephalic. . Throat is dry. NECK: Supple. Thyroid midline. No palpable appreciable lymphadenopathy. HEART: Regular rate. Normal S1 and S2. LUNGS: Decreased breath sounds bilaterally. ABDOMEN: Soft and nontender. Positive bowel sounds, scaphoid. EXTREMITIES: He has no edema. His right-sided paralysis is secondary to an old CVA. SKIN: For the most part intact that I can tell. LABORATORY DATA: He cannot swallow at this time. He had blood tests done. He had a 7.6 white count, 14.4 hemoglobin, 44.1 hematocrit, and 239 platelets. Sodium 143, potassium is 4.8, BUN is 31, creatinine 0.9, sugars 115, and calcium 9.7. INR is 1.1. ASSESSMENT AND PLAN: He has failed three outpatient swallow evaluations. The wants him to have a feeding tube. He does want hospice, but he is a Do Not Resuscitate/Do No Intubate. Consult with Gastroenterology, Dr. Mar, for percutaneous endoscopic gastrostomy tube feeding tomorrow morning and will discharge him back to [facility] tomorrow afternoon, and he is here for observation. Thony Mojica DO MTDD
[2018-03-10 07:42] LABS: BASO % 0.6 % (0.0-2.0); EOS # 0.2 K/uL (0.0-0.7); EOS % 2.6 % (0.0-4.0); HEMOGLOBIN 12.8 g/dL (12.0-18.0); LYMPH # 1.3 K/uL (1.0-4.3); LYMPH % 19.1 % (20.0-40.0); MEAN CELL VOLUME 97.7 fL (80.0-94.0); MEAN CORPUSCULAR HEMOGLOBIN 32.9 pg (27.0-31.0); MEAN CORPUSCULAR HGB CONC 33.7 g/dL (33.0-37.0); MEAN PLATELET VOLUME 6.9 fL (7.2-11.7); MONO # 0.8 K/uL (0.0-0.8); MONO % 12.2 % (0.0-10.0); NEUT # 4.4 K/uL (1.8-7.0); NEUT % 65.5 % (50.0-75.0); NRBC % 0.1 % (0.0-2.0); RBC 3.89 Mil/uL (4.40-5.90); RED CELL DISTRIBUTION WIDTH 13.7 % (11.5-14.5); WHITE BLOOD COUNT 6.7 K/uL (4.8-10.8)
--- NOTE | 2018-03-10 07:53 | CP.PCM.CON ---
<Mukul Lew - Last Filed: 03/10/18 10:36> History of Present Illness - History of Present Illness History of Present Illness: GI Fellow PGY4, Consult note. Consulted for "difficulty swallowing and G tube eval". Patient presented to ED for failure to thrive, difficulty swallowing, weight loss. He is from [facility]. PCP and family have been evaluating dysphagia with outpatient swallowing screens x3 which has been failing. There was concern for aspiration. From EMR records, he has lost 45lbs in the last 5-6 months. He is reportedly on Plavix, but patient cannot tell me when he was last taking. PMHx - CVA, Afib, COPD, chronic constipation PSHx - PPM FMHx - unknown SocHx - lives at [facility], family involved in care. Patient is non-verbal, unable to complete 12pt ROS. Past Patient History - Infectious Disease Hx of Infectious Diseases: None - Tetanus Immunizations Tetanus Immunization: Unknown - Past Medical History & Family History Past Medical History?: Yes - Past Social History Smoking Status: Former Smoker - CARDIAC Hx Atrial Fibrillation: Yes Hx Congestive Heart Failure: Yes Hx Hypercholesterolemia: Yes Hx Hypertension: Yes Hx Pacemaker: Yes - PULMONARY Hx Chronic Obstructive Pulmonary Disease (COPD): Yes - NEUROLOGICAL Hx Dementia: Yes Hx Parkinson's Disease: Yes ((?)) - HEENT Hx HEENT Problems: Yes Hx Deafness: Yes (partial) Other/Comment: GAMBELL - RENAL Hx Chronic Kidney Disease: No - ENDOCRINE/METABOLIC Hx Hypothyroidism: Yes - HEMATOLOGICAL/ONCOLOGICAL Hx Blood Disorders: No - INTEGUMENTARY Hx Dermatological Problems: No - MUSCULOSKELETAL/RHEUMATOLOGICAL Hx Arthritis: Yes (Osteoarthritis) - GASTROINTESTINAL Hx Gastrointestinal Disorders: Yes Hx Constipation: Yes - GENITOURINARY/GYNECOLOGICAL Hx Genitourinary Disorders: Yes Hx Hematuria: Yes (current dx) Hx Prostate Cancer: No Hx Prostate Problems: Yes (BPH) - PSYCHIATRIC Hx Substance Use: No - SURGICAL HISTORY Hx Surgeries: Yes Other/Comment: S/p permanent pacemaker implant - ANESTHESIA Hx Anesthesia: Yes Hx Anesthesia Reactions: No Hx Malignant Hyperthermia: No Meds Allergies/Adverse Reactions: Allergies Allergy/AdvReac Type Severity Reaction Status Date / Time No Known Allergies Allergy Verified 03/09/18 16:09 - Medications Medications: Current Medications Enoxaparin Sodium (Lovenox) 30 mg SC DAILY [facility] Sodium Chloride (Sodium Chloride 0.45%) 1,000 mls @ 40 mls/hr IV .Q24H [facility] Last Admin: 03/09/18 19:24 Dose: 40 mls/hr Influenza Virus Vaccine (Flucelvax Quad [id number] Syr) 60 mcg IM .ONCE ONE Stop: 03/10/18 10:01 Pneumococcal Polyvalent Vaccine (Pneumovax 23 Vaccine) 0.5 ml IM .ONCE ONE Stop: 03/10/18 10:01 Physical Exam - Constitutional Appears: Non-toxic, No Acute Distress, Confused, Cachectic, Chronically Ill Additional comments: muscle and fat atrophy. - Head Exam Head Exam: ATRAUMATIC, NORMAL INSPECTION - Eye Exam Eye Exam: EOMI, Normal appearance - ENT Exam ENT Exam: Mucous Membranes Moist, Normal Exam - Respiratory Exam Respiratory Exam: Clear to Auscultation Bilateral, Wheezes, NORMAL BREATHING PATTERN - Cardiovascular Exam Cardiovascular Exam: REGULAR RHYTHM, +S1, +S2 - GI/Abdominal Exam GI & Abdominal Exam: Normal Bowel Sounds, Soft. absent: Organomegaly, Tenderness Additional comments: No evidence of previous abdominal surgeries. - Extremities Exam Extremities exam: Positive for: normal inspection. Negative for: pedal edema - Neurological Exam Neurological exam: Alert, Altered - Psychiatric Exam Psychiatric exam: Flat Affect - Skin Skin Exam: Normal Color, Warm Results - Vital Signs Recent Vital Signs: Last Vital Signs Temp 98.4 F 03/09/18 23:50 Pulse 74 03/09/18 23:50 Resp 20 03/09/18 23:50 BP 161/89 H 03/09/18 23:50 Pulse Ox 99 03/10/18 04:35 - Labs Result Diagrams: 03/10/18 07:33 03/10/18 07:33 Labs: Laboratory Results - last 24 hr 03/09/18 03/09/18 03/09/18 16:53 16:53 16:53 WBC 7.6 RBC 4.50 Hgb 14.4 D Hct 44.1 MCV 98.0 H MCH 32.0 H MCHC 32.7 L RDW 13.7 Plt Count 239 MPV 7.3 Neut % (Auto) 71.0 Lymph % (Auto) 16.6 L Dickens % (Auto) 10.5 H Eos % (Auto) 1.4 Baso % (Auto) 0.5 Neut # (Auto) 5.4 Lymph # (Auto) 1.3 Dickens # (Auto) 0.8 Eos # (Auto) 0.1 Baso # (Auto) 0.0 PT 12.3 H INR 1.1 APTT 24 Sodium 143 Potassium 4.8 Chloride 107 Carbon Dioxide 30 Anion Gap 11 BUN 31 H Creatinine 0.9 Est GFR ( Amer) > 60 Est GFR (Non-Af Amer) > 60 Random Glucose 115 H D Calcium 9.7 Blood Type Antibody Screen 03/09/18 03/10/18 20:16 07:33 WBC 6.7 RBC 3.89 L Hgb 12.8 Hct 38.0 MCV 97.7 H MCH 32.9 H MCHC 33.7 RDW 13.7 Plt Count 224 MPV 6.9 L Neut % (Auto) 65.5 Lymph % (Auto) 19.1 L Dickens % (Auto) 12.2 H Eos % (Auto) 2.6 Baso % (Auto) 0.6 Neut # (Auto) 4.4 Lymph # (Auto) 1.3 Dickens # (Auto) 0.8 Eos # (Auto) 0.2 Baso # (Auto) 0.0 PT INR APTT Sodium Potassium Chloride Carbon Dioxide Anion Gap BUN Creatinine Est GFR ( Amer) Est GFR (Non-Af Amer) Random Glucose Calcium Blood Type A POSITIVE Antibody Screen Negative Assessment & Plan - Assessment and Plan (Free Text) Assessment: #Dysphagia #Failure to thrive #Malnourished, severe #Weight loss #Chronic Plavix use #Chronic constipation #COPD #Afib #CVA #Non-verbal PLAN: -I have discussed the plan, risks and benefits of PEG placement with Ivy Zhang -Last Plavix dose was given February 24 2018, confirmed with nursing staff at [facility]. -PreOP Abx prophylaxis -He will benefit from bowel regimen after PEG Case discussed with Dr. Mar. See attestation. - Date & Time Date: 03/10/18 Time: 07:58 <Tru Mar Y - Last Filed: 03/10/18 12:10> Meds - Medications Medications: Current Medications Enoxaparin Sodium (Lovenox) 30 mg SC DAILY [facility] Sodium Chloride (Sodium Chloride 0.45%) 1,000 mls @ 40 mls/hr IV .Q24H [facility] Last Admin: 03/09/18 19:24 Dose: 40 mls/hr Results - Vital Signs Recent Vital Signs: Last Vital Signs Temp 98.7 F 03/10/18 08:12 Pulse 74 03/10/18 08:12 Resp 19 03/10/18 08:12 BP 163/83 H 03/10/18 08:12 Pulse Ox 95 03/10/18 08:12 - Labs Result Diagrams: 03/10/18 07:33 03/10/18 07:33 Labs: Laboratory Results - last 24 hr 03/09/18 03/09/18 03/09/18 16:53 16:53 16:53 WBC 7.6 RBC 4.50 Hgb 14.4 D Hct 44.1 MCV 98.0 H MCH 32.0 H MCHC 32.7 L RDW 13.7 Plt Count 239 MPV 7.3 Neut % (Auto) 71.0 Lymph % (Auto) 16.6 L Dickens % (Auto) 10.5 H Eos % (Auto) 1.4 Baso % (Auto) 0.5 Neut # (Auto) 5.4 Lymph # (Auto) 1.3 Dickens # (Auto) 0.8 Eos # (Auto) 0.1 Baso # (Auto) 0.0 PT 12.3 H INR 1.1 APTT 24 Sodium 143 Potassium 4.8 Chloride 107 Carbon Dioxide 30 Anion Gap 11 BUN 31 H Creatinine 0.9 Est GFR ( Amer) > 60 Est GFR (Non-Af Amer) > 60 Random Glucose 115 H D Calcium 9.7 Total Bilirubin AST ALT Alkaline Phosphatase Total Protein Albumin Globulin Albumin/Globulin Ratio Blood Type Antibody Screen 03/09/18 03/10/18 03/10/18 20:16 07:33 07:33 WBC 6.7 RBC 3.89 L Hgb 12.8 Hct 38.0 MCV 97.7 H MCH 32.9 H MCHC 33.7 RDW 13.7 Plt Count 224 MPV 6.9 L Neut % (Auto) 65.5 Lymph % (Auto) 19.1 L Dickens % (Auto) 12.2 H Eos % (Auto) 2.6 Baso % (Auto) 0.6 Neut # (Auto) 4.4 Lymph # (Auto) 1.3 Dickens # (Auto) 0.8 Eos # (Auto) 0.2 Baso # (Auto) 0.0 PT INR APTT Sodium 142 Potassium 3.9 Chloride 110 H Carbon Dioxide 25 Anion Gap 11 BUN 29 H Creatinine 0.9 Est GFR ( Amer) > 60 Est GFR (Non-Af Amer) > 60 Random Glucose 98 Calcium 9.1 Total Bilirubin 0.9 AST 26 ALT 24 Alkaline Phosphatase 95 Total Protein 7.1 Albumin 3.5 D Globulin 3.6 Albumin/Globulin Ratio 1.0 Blood Type A POSITIVE Antibody Screen Negative Attending/Attestation - Attestation I have personally seen and examined this patient.: Yes I have fully participated in the care of the patient.: Yes I have reviewed all pertinent clinical information: Yes Notes (Text): 03/10/18 12:04 I have seen and examined patient with GI fellow. Agree with above documentation with the following additions. In brief, this is an 87 year old male with history of atrial fibrillation, CVA on plavix, COPD, aphasia, who is sent from nursing facility for evaluation of progressive dysphagia and weight loss. Patient cannot properly engage in meaningful conversation due to underlying aphasia, additional information obtained via chart review and further discussion with patient's Ivy. He has been having progressive dysphagia with occasional regurgitation of food product over the past 6 months and during this time has lost nearly 40 pounds. There is no reported abdominal pain, vomiting, fever/chills, rectal bleeding. Unclear regarding prior endoscopic history. Atrial fibrillation CVA on plavix ([facility]24 [facility]) COPD Dysphagia, weight loss - NPO - Continue with IVF hydration, supportive care - Given ongoing dysphagia with significant weight loss and failure to thrive, patient would likely benefit from alternative source of nutritional support such as endoscopic gastrostomy. Risks/benefits of procedure discussed with patient's in detail, she understands risks and agrees to proceed with planned endoscopic procedure. - Patient will require antibiotic prophylaxis prior to procedure - Further recommendations following EGD/PEG today
[2018-03-10 08:46] LABS: ALBUMIN 3.5 g/dL (3.5-5.0); ALT/SGPT 24 U/L (21-72); AST/SGOT 26 U/L (17-59); BLOOD UREA NITROGEN 29 mg/dL (9-20); CALCIUM 9.1 mg/dl (8.6-10.4); GFR NON-AFRICAN AMERICAN > 60
[2018-03-10] MEDS ORDERED: Influenza Vaccine 60 mcg/0.5 mL SYR (4YR UP) IM ONE (10:00)
[2018-03-10] MEDS ORDERED: Pneumococcal 23-Valent Vaccine IM ONE (10:00)
[2018-03-10] MEDS ORDERED: ceFAZolin IV 1 gm in Dextrose 1 GM/50 ML BAG IVPB ONE (11:00)
[2018-03-10] MEDS ORDERED: Lactated Ringer's 1,000 ML IV ONE (14:10)
[2018-03-10] MEDS ORDERED: Propofol 10 mg/ml Inj (20 ML) ONE (14:17)
[2018-03-10] MEDS ORDERED: ePHEDrine 50 mg/ml Inj ONE (14:17)
[2018-03-10] MEDS ORDERED: Etomidate 20 mg/10ml Inj IV ONE (14:17)
--- NOTE | 2018-03-10 15:06 | RAD ---
Date of service: 03/09/2018 PROCEDURE: CHEST RADIOGRAPH, 1 VIEW HISTORY: DIFF SWALLOWING, PREOP COMPARISON: 11/15/2016 FINDINGS: LUNGS: Lung volumes within normal limits. Left mid to lower lung zone lateral pleural parenchymal vague opacity perceived-here left pleural thickening reaction suspect. No gross rib destruction here seen. Some prior left pleural effusion thickening reaction here likely. Left costophrenic angle sharp no significant appearing left pleural effusion noted. No interval consolidation seen. Possible right mid/lower lung zone pleural parenchymal pathology seen on end on current exam some similar opacity here is noted on the prior study no other areas of pleural thickening and/or asymmetrically prominent right 1st coaster cartilaginous junctional calcification hypertrophy here right anterior 4th rib is another consideration. Probable trace right costophrenic angle minimal pleural thickening as well PLEURA: No pneumothorax seen. Pleural changes as above. CARDIOVASCULAR: There is presence of aortic atherosclerotic calcification on x-ray. Heart size probably normal. Mild ectasia of the thoracic aorta. Dual lead pacemaker device intact grossly in similar position.No significant appearing pulmonary venous congestion. OSSEOUS STRUCTURES: Deformity of right lateral clavicle bulbous cystic expansile pathology here suggested-similar with 2012 image images. VISUALIZED UPPER ABDOMEN: Distended colon loops at least colon is distended additional small bowel loops not excluded excluded this gaseous distension of bowel is noted on the prior 2016 and 2015 study and also noted on the 01/23/2016 abdomen and pelvic exam. On that exam a very prominent ileus was interpreted- Clinical correlation with patient's symptomatology/are presentation needed. No free air subdiaphragmatic noted. OTHER FINDINGS: None. IMPRESSION: No interval pathology seen with compared with the prior studies as detailed above. Chronic bilateral patchy pleural parenchymal pathologies re-noted. No interval dense consolidation seen. Some of the right mid-lower lung zone nodular opacity is indeterminate in etiology. In this regard consider noncontrast CT chest to clarify. Again the visualized colon loops are markedly distended with gas no subdiaphragmatic free air seen. Again the ileus is 1 consideration. However mechanical obstruction cannot be excluded-multiple prior studies apparently representing ileus. Clinical correlation is essential. Comments: Study marked for PA review .
[2018-03-10] MEDS: Sodium Chloride 0.45% 1,000 ML IV SCH (18:45)
--- NOTE | 2018-03-11 06:13 | DS ---
HISTORY OF PRESENT ILLNESS: The patient was put in yesterday because he failed three swallow evaluations. Following this, the agreed to do a feeding tube. He is here to get a feeding tube and then go right back to the [facility]. He is to be on observation level of care, and I am hoping that GI can come in and put a feeding tube in him today and then we can transfer him later today to the [facility]. I discussed with the nurse at the [facility] and then we can put him back on his regular medications. He is on Lovenox, IV fluids. LABORATORY DATA: He has an INR of 1.1, white count of 7.6, hemoglobin of 14.4, and platelets of 239. He has sodium of 143, potassium 4.8, BUN 31, creatinine 0.9, GFR is greater than 60, sugar is 115, calcium 9.7. PLAN: Awaiting for labs come back this morning, awaiting for Gastroenterology hopefully to schedule him today. He is n.p.o., and hopefully, we could discharged him later today after the procedure. Thony Mojica DO
[2018-03-11] MEDS: Levothyroxine 125 MCG TAB PO SCH (06:23)
[2018-03-11 07:27] LABS: HEMOGLOBIN 13.6 g/dL (12.0-18.0); MEAN CELL VOLUME 97.6 fL (80.0-94.0); MEAN CORPUSCULAR HEMOGLOBIN 33.8 pg (27.0-31.0); MEAN CORPUSCULAR HGB CONC 34.6 g/dL (33.0-37.0); MEAN PLATELET VOLUME 7.1 fL (7.2-11.7); RBC 4.01 Mil/uL (4.40-5.90); RED CELL DISTRIBUTION WIDTH 13.8 % (11.5-14.5)
[2018-03-11 07:31] LABS: WHITE BLOOD COUNT 10.2 K/uL (4.8-10.8)
[2018-03-11 07:38] VITALS: RESP 20
[2018-03-11 07:54] LABS: ALBUMIN 3.8 g/dL (3.5-5.0); ALT/SGPT 21 U/L (21-72); AST/SGOT 30 U/L (17-59); BLOOD UREA NITROGEN 27 mg/dL (9-20); CALCIUM 9.3 mg/dl (8.6-10.4); GFR NON-AFRICAN AMERICAN > 60
[2018-03-11] MEDS: Albuterol-Ipratrop 3 mg / 0.5 (3 ml) UD IH SCH ×4 (08:42→20:40)
--- NOTE | 2018-03-11 08:55 | CP.PCM.PN ---
<Mukul Lew - Last Filed: 03/11/18 11:43> Subjective - Date & Time of Evaluation Date of Evaluation: 03/11/18 Time of Evaluation: 08:58 - Subjective Subjective: GI Fellow PGY4, progress note. Patient is doing well. PEG successful. He is tolerating meds and free water flushes. Unable to complete ROS due to chronic mental status changes. Objective - Vital Signs/Intake and Output Vital Signs (last 24 hours): Temp Pulse Resp BP Pulse Ox 97.6 F 74 20 167/75 H 98 03/11/18 07:35 03/11/18 07:35 03/11/18 07:35 03/11/18 07:35 03/11/18 07:35 Intake and Output: 03/11/18 03/11/18 06:59 18:59 Intake Total 380 380 Balance 380 380 - Medications Medications: Current Medications Albuterol/Ipratropium (Duoneb 3 Mg/0.5 Mg (3 Ml) Ud) 3 ml IH RQID [facility] Last Admin: 03/11/18 08:42 Dose: 3 ml Ascorbic Acid (Vitamin C 500 Mg Tab) 500 mg PO BID [facility] Last Admin: 03/10/18 22:37 Dose: 500 mg Clopidogrel Bisulfate (Plavix) 75 mg PO DAILY [facility] Enoxaparin Sodium (Lovenox) 30 mg SC DAILY [facility] Ergocalciferol (Drisdol 50,000 Intl Units Cap) 1 cap PO QWK [facility] Finasteride (Proscar) 5 mg PO DAILY [facility] Folic Acid (Folic Acid) 1 mg PO DAILY [facility] Sodium Chloride (Sodium Chloride 0.45%) 1,000 mls @ 40 mls/hr IV .Q24H [facility] Last Admin: 03/10/18 18:45 Dose: 40 mls/hr Levothyroxine Sodium (Synthroid) 125 mcg PO DAILY@0630 [facility] Last Admin: 03/11/18 06:23 Dose: 125 mcg Metoprolol Tartrate (Lopressor) 25 mg PO DAILY [facility] Mirtazapine (Remeron) 15 mg PO HS [facility] Last Admin: 03/10/18 22:52 Dose: 15 mg Phenytoin Sodium (Dilantin) 100 mg PO QID [facility] Last Admin: 03/10/18 22:37 Dose: 100 mg Tamsulosin HCl (Flomax) 0.4 mg PO DAILY [facility] - Labs Labs: 03/11/18 07:21 03/11/18 07:21 PT 12.3 SECONDS (9.7-12.2) H 03/09/18 16:53 INR 1.1 03/09/18 16:53 APTT 24 SECONDS (21-34) 03/09/18 16:53 - Constitutional Appears: Non-toxic, No Acute Distress, Confused, Cachectic, Chronically Ill - Head Exam Head Exam: ATRAUMATIC, NORMAL INSPECTION - Eye Exam Eye Exam: EOMI, Normal appearance - ENT Exam ENT Exam: Mucous Membranes Moist, Normal Exam - Respiratory Exam Respiratory Exam: Clear to Ausculation Bilateral, NORMAL BREATHING PATTERN - Cardiovascular Exam Cardiovascular Exam: REGULAR RHYTHM, +S1, +S2 - GI/Abdominal Exam GI & Abdominal Exam: Soft, Normal Bowel Sounds. absent: Tenderness Additional comments: PEG tube in place. No erythema, discharge. External bumper is at 3cm. - Extremities Exam Extremities Exam: Normal Inspection. absent: Pedal Edema - Neurological Exam Neurological Exam: Alert, Altered. absent: Oriented x3 - Psychiatric Exam Psychiatric exam: Depressed, Flat Affect - Skin Skin Exam: Normal Color, Warm Assessment and Plan - Assessment and Plan (Free Text) Assessment: #Dysphagia #Failure to thrive #Malnourished, severe #Weight loss #Chronic Plavix use #Chronic constipation #COPD #Afib #CVA #Non-verbal PLAN: -s/p PEG placment 03/10/18 -Start bowel regimen -OK to start tube feeds -Tubular Splitting Machine Tender consult placed -Free water flush 30cc every 8 hours. Case discussed with Dr. Mar. See attestation. <Tru Mar - Last Filed: 03/11/18 11:47> Objective - Vital Signs/Intake and Output Vital Signs (last 24 hours): Temp Pulse Resp BP Pulse Ox 97.6 F 74 20 167/75 H 98 03/11/18 07:35 03/11/18 07:35 03/11/18 07:35 03/11/18 10:40 03/11/18 07:35 Intake and Output: 03/11/18 03/11/18 06:59 18:59 Intake Total 380 380 Balance 380 380 - Medications Medications: Current Medications Albuterol/Ipratropium (Duoneb 3 Mg/0.5 Mg (3 Ml) Ud) 3 ml IH RQID [facility] Last Admin: 03/11/18 08:42 Dose: 3 ml Ascorbic Acid (Vitamin C 500 Mg Tab) 500 mg PO BID [facility] Last Admin: 03/11/18 10:40 Dose: 500 mg Clopidogrel Bisulfate (Plavix) 75 mg PO DAILY [facility] Last Admin: 03/11/18 10:40 Dose: 75 mg Enoxaparin Sodium (Lovenox) 30 mg SC DAILY [facility] Last Admin: 03/11/18 10:39 Dose: 30 mg Ergocalciferol (Drisdol 50,000 Intl Units Cap) 1 cap PO QWK [facility] Last Admin: 03/11/18 10:41 Dose: 1 cap Finasteride (Proscar) 5 mg PO DAILY [facility] Folic Acid (Folic Acid) 1 mg PO DAILY [facility] Last Admin: 03/11/18 10:40 Dose: 1 mg Sodium Chloride (Sodium Chloride 0.45%) 1,000 mls @ 40 mls/hr IV .Q24H [facility] Last Admin: 03/10/18 18:45 Dose: 40 mls/hr Levothyroxine Sodium (Synthroid) 125 mcg PO DAILY@0630 [facility] Last Admin: 03/11/18 06:23 Dose: 125 mcg Metoprolol Tartrate (Lopressor) 25 mg PO DAILY [facility] Last Admin: 03/11/18 10:40 Dose: 25 mg Mirtazapine (Remeron) 15 mg PO HS [facility] Last Admin: 03/10/18 22:52 Dose: 15 mg Phenytoin Sodium (Dilantin) 100 mg PO QID [facility] Last Admin: 03/11/18 10:40 Dose: 100 mg Polyethylene Glycol (Miralax) 17 gm PO BID [facility] Last Admin: 03/11/18 10:41 Dose: 17 gm Tamsulosin HCl (Flomax) 0.4 mg PO DAILY [facility] Last Admin: 03/11/18 10:41 Dose: 0.4 mg - Labs Labs: 03/11/18 07:21 03/11/18 07:21 PT 12.3 SECONDS (9.7-12.2) H 03/09/18 16:53 INR 1.1 03/09/18 16:53 APTT 24 SECONDS (21-34) 03/09/18 16:53
--- NOTE | 2018-03-11 09:28 | PN ---
DATE: 03/11/2018 SUBJECTIVE: He is resting comfortably in bed this morning. He is alert and smiling at me. He is on Dilantin, Drisdol, DuoNebs, Flomax, folic acid, Lopressor, Lovenox, Plavix, Proscar, Remeron, IV fluids, Synthroid, and ascorbic acid. He just had a feeding tube placed, hopefully, today they can start to use it. PHYSICAL EXAMINATION: VITAL SIGNS: He has a 98.2 temp, 82 pulse, 168/81 blood pressure, 22 respiratory rate, 96% O2 sat on nasal cannula. HEENT: Head is atraumatic and normocephalic. HEART: Regular rate. LUNGS: Decreased breath sounds, but clear. ABDOMEN: Soft. EXTREMITIES: He has got weakness secondary to a stroke. He is nonverbal and he cannot swallow anymore. LABORATORY DATA: He has a 6.7 white count, 12.8 hemoglobin, 38 hematocrit with 224 platelets. Sodium 142, potassium 3.9, BUN 29, creatinine 0.9, GFR is greater than 60, sugar is 98, calcium is 9.1, total bilirubin is 0.9, AST is 26, ALT is 24, alk phos is 95, total protein is 7.1. ASSESSMENT AND PLAN: He just started on his percutaneous endoscopic gastrostomy tube feedings today, I will get dietary to help us with that. This is his first time having percutaneous endoscopic gastrostomy tube feedings. He is here for three overnights, then he could go to [facility] because the [facility] will not take him back at this time with a feeding tube unless they know it is a simple situation. So, the plan is for three overnights and then to [facility] for subacute rehab, learning how to do the feedings, and then for probably back down at [facility], who has got swallowing issues. Thony Mojica DO
[2018-03-11] MEDS ORDERED: Bacitracin/Neomycin/Polymyxin Oint(30GM) TOP ONE (09:45)
[2018-03-11] MEDS ORDERED: Ergocalciferol 50,000 Intl Units Cap PO SCH (10:00)
[2018-03-11] MEDS: Enoxaparin 30 mg Syringe SC SCH (10:39)
[2018-03-11] MEDS: POLYETHYLENE GLYCOL 3350 17 GM/Dose PACKET PO SCH ×2 (10:41→21:58)
[2018-03-11] MEDS: Sodium Chloride 0.45% 1,000 ML IV SCH (22:00)
[2018-03-12] MEDS: Levothyroxine 125 MCG TAB PO SCH (05:31)
[2018-03-12 07:29] LABS: BASO # 0.1 K/uL (0.0-0.2); BASO % 0.5 % (0.0-2.0); EOS # 0.1 K/uL (0.0-0.7); EOS % 0.6 % (0.0-4.0); HEMOGLOBIN 13.1 g/dL (12.0-18.0); LYMPH # 1.3 K/uL (1.0-4.3); LYMPH % 12.9 % (20.0-40.0); MEAN CELL VOLUME 96.6 fL (80.0-94.0); MEAN CORPUSCULAR HEMOGLOBIN 34.1 pg (27.0-31.0); MEAN CORPUSCULAR HGB CONC 35.3 g/dL (33.0-37.0); MEAN PLATELET VOLUME 6.8 fL (7.2-11.7); MONO # 0.9 K/uL (0.0-0.8); MONO % 9.2 % (0.0-10.0); NEUT # 7.6 K/uL (1.8-7.0); NEUT % 76.8 % (50.0-75.0); RBC 3.86 Mil/uL (4.40-5.90); RED CELL DISTRIBUTION WIDTH 13.5 % (11.5-14.5); WHITE BLOOD COUNT 9.9 K/uL (4.8-10.8)
[2018-03-12 07:44] LABS: ALBUMIN 3.5 g/dL (3.5-5.0); ALT/SGPT 14 U/L (21-72); AST/SGOT 32 U/L (17-59); BLOOD UREA NITROGEN 27 mg/dL (9-20); CALCIUM 9.1 mg/dl (8.6-10.4); GFR NON-AFRICAN AMERICAN > 60
[2018-03-12] MEDS: Albuterol-Ipratrop 3 mg / 0.5 (3 ml) UD IH SCH ×5 (07:52→20:04)
[2018-03-12] MEDS: POLYETHYLENE GLYCOL 3350 17 GM/Dose PACKET PO SCH ×2 (10:03→17:56)
[2018-03-12] MEDS: Enoxaparin 30 mg Syringe SC SCH (10:03)
--- NOTE | 2018-03-12 11:15 | PN ---
DATE: 03/12/2018 SUBJECTIVE: He is doing quite well in bed. He has a feeding tube put in. He is getting his feedings. He is tolerating it well. He is on Dilantin, Drisdol, DuoNeb, Flomax, folic acid, Lopressor, Lovenox, MiraLax, Plavix, Proscar, Remeron, IV fluids, Synthroid, and vitamin C. He is alert. The creatinine is back to its baseline. PHYSICAL EXAMINATION: VITAL SIGNS: 97.7 temp, 96 pulse, 162/74 blood pressure, 20 respiratory rate, 100% O2 sat on 2 L. HEENT: Head is atraumatic and normocephalic. GENERAL: He is smiling at me, looking at me. That is his baseline. HEART: Regular rate. LUNGS: Decreased breath sounds, but clear. ABDOMEN: Soft. Positive feeding tube. EXTREMITIES: Mildly cydney. No edema. NEURO: He has got weakness from an old stroke. He is also unable to talk. LABORATORY DATA: He has a 9.9 white count, 13.1 hemoglobin, 37.3 hematocrit with 264 platelets. INR is 1.1. Sodium 137, potassium is 4, BUN is 27, creatinine 0.8, GFR is greater than 60, sugar is 157, calcium is 9.1, total bilirubin is 0.4, AST is 32, ALT is 14, alk phos is 95, total protein 6.8, albumin 3.5. ASSESSMENT: He is doing much better. He has two more overnights, then he could go to [facility] for subacute rehabilitation before they go back to another assisted facility or stay at [facility], not sure what the family wants. Continue with giving good care, status post percutaneous endoscopic gastrostomy tube placement, watch the feedings, check his laboratories, and he had a failure to thrive, unable to swallow, taught to swallow, how to with the feeding tube. Thony Mojica DO MTDD
[2018-03-12] MEDS: Sodium Chloride 0.45% 1,000 ML IV SCH (23:44)
[2018-03-13] MEDS: Levothyroxine 125 MCG TAB PO SCH (06:07)
[2018-03-13] MEDS: Albuterol-Ipratrop 3 mg / 0.5 (3 ml) UD IH SCH ×4 (08:10→20:44)
[2018-03-13 08:41] LABS: HEMOGLOBIN 12.3 g/dL (12.0-18.0); MEAN CELL VOLUME 97.2 fL (80.0-94.0); MEAN CORPUSCULAR HEMOGLOBIN 33.2 pg (27.0-31.0); MEAN CORPUSCULAR HGB CONC 34.2 g/dL (33.0-37.0); RBC 3.72 Mil/uL (4.40-5.90); RED CELL DISTRIBUTION WIDTH 13.9 % (11.5-14.5)
[2018-03-13 08:45] LABS: WHITE BLOOD COUNT 17.6 K/uL (4.8-10.8)
[2018-03-13 09:00] LABS: ALBUMIN 3.5 g/dL (3.5-5.0); ALT/SGPT < 6 U/L (21-72); AST/SGOT 30 U/L (17-59); BLOOD UREA NITROGEN 27 mg/dL (9-20); CALCIUM 9.1 mg/dl (8.6-10.4); GFR NON-AFRICAN AMERICAN > 60
[2018-03-13] MEDS: Enoxaparin 30 mg Syringe SC SCH (09:41)
[2018-03-13] MEDS: POLYETHYLENE GLYCOL 3350 17 GM/Dose PACKET PO SCH ×2 (09:42→17:31)
--- NOTE | 2018-03-13 13:25 | PN ---
DATE: 03/13/2018 SUBJECTIVE: He is resting comfortably in bed. He has IV fluids and PEG tube feedings running. I will discontinue the IV fluids. He is alert, looking at me. I am trying to get him back to [facility] tomorrow. PHYSICAL EXAMINATION: VITAL SIGNS: Temp 97.7, 86 up to 103 pulse, 145/80 blood pressure , 20 respiratory rate , 97% O2 sat on 2 L nasal cannula. GENERAL: He is looking at me. HEENT: Head is atraumatic and normocephalic. His throat is full of phlegm, needs to be cleaned. I will discuss it with the nurse. NECK: Supple. HEART: Regular rate. LUNGS: Decreased breath sounds, but clear. ABDOMEN: Soft. Positive PEG tube. EXTREMITIES: No edema. MEDICATIONS: He is currently on Dilantin, Drisdol, DuoNebs, Flomax, folic acid, Lopressor, Lovenox, MiraLax, Plavix, Proscar, Remeron, Synthroid, and vitamin C. LABORATORY DATA: He has a 9.9 white count, 13.1 hemoglobin, 37.3 hematocrit with 264 platelets. Sodium 137, potassium 4, BUN 27, creatinine 0.8, GFR is greater than 60, sugar is 157, calcium is 9.1, total bilirubin is 0.7, AST is 32, ALT is 14, alk phos is 95, total protein 6.8. ASSESSMENT: He is being seen by Gastrointestinal. We will put the feeding tube in. He is to start feedings. PLAN: The plan is to discharge him back to [facility] tomorrow that will be his third overnight. Discussed with the nurse encouragement with routine care, keep him stimulated as possible. He has failure to thrive, cannot swallow anymore that is why the feeding tube is placed at family's wishes. Thony Mojica DO
[2018-03-14] MEDS: Levothyroxine 125 MCG TAB PO SCH (05:47)
[2018-03-14 06:01] LABS: HEMOGLOBIN 11.5 g/dL (12.0-18.0); MEAN CELL VOLUME 96.6 fL (80.0-94.0); MEAN CORPUSCULAR HEMOGLOBIN 32.1 pg (27.0-31.0); MEAN CORPUSCULAR HGB CONC 33.3 g/dL (33.0-37.0); MEAN PLATELET VOLUME 7.2 fL (7.2-11.7); RBC 3.57 Mil/uL (4.40-5.90); RED CELL DISTRIBUTION WIDTH 13.9 % (11.5-14.5)
[2018-03-14] MEDS: Albuterol-Ipratrop 3 mg / 0.5 (3 ml) UD IH SCH ×4 (07:50→19:43)
--- NOTE | 2018-03-14 09:22 | RAD ---
Date of service: 03/14/2018 HISTORY: hi wbcs COMPARISON: 03/09/2018 FINDINGS: LUNGS: Focal opacity mid left lung, laterally. Focal opacity at right base. New since prior examination. Possible bilateral pneumonia. Follow-up advised. PLEURA: Small right pleural effusion. No left pleural effusion. No pneumothorax. CARDIOVASCULAR: There is atherosclerotic calcification of the thoracic aortic arch. Normal cardiac size. No congestive change permanent pacemaker. OSSEOUS STRUCTURES: No significant abnormalities. VISUALIZED UPPER ABDOMEN: Normal. OTHER FINDINGS: None. IMPRESSION: Mid left lung and right basilar infiltrates. Small right pleural effusion. Possible multifocal pneumonia. Follow-up advised.
[2018-03-14] MEDS: Enoxaparin 30 mg Syringe SC SCH (11:12)
[2018-03-14] MEDS: POLYETHYLENE GLYCOL 3350 17 GM/Dose PACKET PO SCH ×2 (11:12→18:09)
--- NOTE | 2018-03-14 11:45 | CP.PCM.CON ---
History of Present Illness - History of Present Illness History of Present Illness: Patient presented to ED for failure to thrive, difficulty swallowing, weight loss. PCP and family have been evaluating dysphagia with outpatient swallowing screens x3 which has been failing. he has lost 45lbs in the last 5-6 months. Had GT placement now on GT feeds Had hi WBC - lactate pending cultures sent CXR repeated PMHx - CVA, Afib, COPD, chronic constipation PSHx - PPM FMHx - unknown Review of Systems - Review of Systems All systems: reviewed and no additional remarkable complaints except - Constitutional Constitutional: As Per HPI Past Patient History - Infectious Disease Hx of Infectious Diseases: None - Tetanus Immunizations Tetanus Immunization: Unknown - Past Medical History & Family History Past Medical History?: Yes - Past Social History Smoking Status: Unknown If Ever Smoked - CARDIAC Hx Cardiac Disorders: Yes Hx Atrial Fibrillation: Yes Hx Congestive Heart Failure: Yes Hx Hypercholesterolemia: Yes Hx Hypertension: Yes Hx Pacemaker: Yes - PULMONARY Hx Respiratory Disorders: Yes Hx Chronic Obstructive Pulmonary Disease (COPD): Yes - NEUROLOGICAL Hx Neurological Disorder: Yes Hx Dementia: Yes Hx Parkinson's Disease: Yes ((?)) - HEENT Hx HEENT Problems: Yes Hx Deafness: Yes (partial) Other/Comment: [place] - RENAL Hx Chronic Kidney Disease: No - ENDOCRINE/METABOLIC Hx Endocrine Disorders: Yes Hx Hypothyroidism: Yes - HEMATOLOGICAL/ONCOLOGICAL Hx Blood Disorders: No - INTEGUMENTARY Hx Dermatological Problems: No - MUSCULOSKELETAL/RHEUMATOLOGICAL Hx Musculoskeletal Disorders: Yes Hx Arthritis: Yes (Osteoarthritis) Hx Falls: No - GASTROINTESTINAL Hx Gastrointestinal Disorders: Yes Hx Constipation: Yes - GENITOURINARY/GYNECOLOGICAL Hx Genitourinary Disorders: Yes Hx Hematuria: Yes (current dx) Hx Prostate Cancer: No Hx Prostate Problems: Yes (BPH) - PSYCHIATRIC Hx Psychophysiologic Disorder: No Hx Substance Use: No - SURGICAL HISTORY Hx Surgeries: Yes Other/Comment: S/p permanent pacemaker implant - ANESTHESIA Hx Anesthesia: Yes Hx Anesthesia Reactions: No Hx Malignant Hyperthermia: No Meds Allergies/Adverse Reactions: Allergies Allergy/AdvReac Type Severity Reaction Status Date / Time No Known Allergies Allergy Verified 03/09/18 16:09 - Medications Medications: Current Medications Albuterol/Ipratropium (Duoneb 3 Mg/0.5 Mg (3 Ml) Ud) 3 ml IH RQID [facility] Last Admin: 03/14/18 07:50 Dose: 3 ml Ascorbic Acid (Vitamin C 500 Mg Tab) 500 mg PO BID [facility] Last Admin: 03/14/18 11:11 Dose: 500 mg Clopidogrel Bisulfate (Plavix) 75 mg PO DAILY [facility] Last Admin: 03/14/18 11:12 Dose: 75 mg Enoxaparin Sodium (Lovenox) 30 mg SC DAILY [facility] Last Admin: 03/14/18 11:12 Dose: 30 mg Ergocalciferol (Drisdol 50,000 Intl Units Cap) 1 cap PO QWK [facility] Last Admin: 03/11/18 10:41 Dose: 1 cap Finasteride (Proscar) 5 mg PO DAILY [facility] Last Admin: 03/14/18 11:11 Dose: 5 mg Folic Acid (Folic Acid) 1 mg PO DAILY [facility] Last Admin: 03/14/18 11:12 Dose: 1 mg Levothyroxine Sodium (Synthroid) 125 mcg PO DAILY@0630 [facility] Last Admin: 03/14/18 05:47 Dose: 125 mcg Metoprolol Tartrate (Lopressor) 25 mg PO DAILY [facility] Last Admin: 03/14/18 11:12 Dose: 25 mg Mirtazapine (Remeron) 15 mg PO HS [facility] Last Admin: 03/13/18 21:16 Dose: 15 mg Phenytoin Sodium (Dilantin) 100 mg PO QID [facility] Last Admin: 03/14/18 11:12 Dose: 100 mg Polyethylene Glycol (Miralax) 17 gm PO BID [facility] Last Admin: 03/14/18 11:12 Dose: 17 gm Tamsulosin HCl (Flomax) 0.4 mg PO DAILY [facility] Last Admin: 03/14/18 11:11 Dose: 0.4 mg Physical Exam - Constitutional Appears: No Acute Distress, Chronically Ill - Head Exam Head Exam: ATRAUMATIC, NORMOCEPHALIC - Eye Exam Eye Exam: PERRL. absent: Scleral icterus - ENT Exam ENT Exam: Mucous Membranes Dry - Neck Exam Neck exam: Negative for: Lymphadenopathy - Respiratory Exam Respiratory Exam: Decreased Breath Sounds, Rhonchi - Cardiovascular Exam Cardiovascular Exam: REGULAR RHYTHM, +S1, +S2 - GI/Abdominal Exam GI & Abdominal Exam: Diminished Bowel Sounds, Soft. absent: Tenderness - Rectal Exam Rectal Exam: Deferred - Exam Exam: NORMAL INSPECTION - Extremities Exam Extremities exam: Negative for: pedal edema - Back Exam Back exam: absent: CVA tenderness (L), CVA tenderness (R), paraspinal tenderness - Neurological Exam Neurological exam: Alert, Altered, CN II-XII Intact, Motor Sensory Deficit Additional comments: weak right side - Psychiatric Exam Psychiatric exam: Depressed - Skin Skin Exam: Dry Results - Vital Signs Recent Vital Signs: Last Vital Signs Temp 98.4 F 03/14/18 08:23 Pulse 87 03/14/18 08:23 Resp 20 03/14/18 08:23 BP 130/71 03/14/18 11:12 Pulse Ox 96 03/14/18 08:23 - Labs Result Diagrams: 03/15/18 08:37 03/15/18 08:37 Labs: Laboratory Results - last 24 hr 03/14/18 03/14/18 05:59 10:04 WBC 12.0 H RBC 3.57 L Hgb 11.5 L Hct 34.5 L MCV 96.6 H MCH 32.1 H MCHC 33.3 RDW 13.9 Plt Count 235 MPV 7.2 Lactic Acid 1.2 Assessment & Plan (1) Pneumonia Status: Acute (2) Difficulty swallowing Status: Acute (3) Acute renal failure Status: Acute (4) BPH (benign prostatic hyperplasia) Status: Acute (5) CAD (coronary artery disease) Status: Acute - Assessment and Plan (Free Text) Assessment: cont iv rx for pneumonia await cultures
[2018-03-14] MEDS: Cefepime IV 2 gm in Dextrose 2 GM/100 ML BAG IVPB SCH (14:30)
[2018-03-14] MEDS: Azithromycin 500 MG in Sodium Chloride 0.9% 250 ML IVPB SCH (14:48)
[2018-03-14 14:55] LABS: HEMOGLOBIN 11.1 g/dL (12.0-18.0); MEAN PLATELET VOLUME 7.5 fL (7.2-11.7); RBC 3.38 Mil/uL (4.40-5.90); RED CELL DISTRIBUTION WIDTH 13.7 % (11.5-14.5)
--- NOTE | 2018-03-14 16:17 | PN ---
DATE: 03/14/2018 SUBJECTIVE: I saw him resting comfortably in bed. He slept fairly well. He is alert, nonverbal, comfortable, in no acute distress. He is on Dilantin Flomax, folic acid, Lopressor, Lovenox, Miralax, Plavix, Proscar, Remeron, Synthroid, and vitamin C. PHYSICAL EXAMINATION: VITAL SIGNS: He has a 98.4 temperature, 87 pulse, 130/71 blood pressure, 20 respiratory rate, and 96% O2 saturation on 2 liters. HEENT: Head is atraumatic and normocephalic. HEART: Regular rate. LUNGS: Clear to auscultation. ABDOMEN: Soft. Now with a feeding tube. EXTREMITIES: No edema. He has got weakness from his CVA. LABORATORY DATA: He has a 12 white count, it came down from 17; 7.5 hemoglobin; 34.5 hematocrit with 235 platelets Sodium 137, potassium 4.2, BUN 27, creatinine 0.8. GFR is greater than 60. Sugar is 153, calcium 9.1, total bilirubin is 0.7, AST is 30, ALT is less than 6, alkaline phosphatase is 83. PLAN: My plan is to discharge him to [facility] at [facility] today if arrangements can be made from case management and I will be able to get him back to [facility] today at [facility] and we are going to check his labs when he is there and see how he is doing. The patient had failed swallow evaluation, failure to thrive and had a feeding tube placed. Thony Mojica DO MTDD
--- NOTE | 2018-03-14 19:57 | PQF ---
PROVIDER RESPONSE TEXT: unable to determine REVIEWER QUERY TEXT: Malnutrition Severity Please consider verify the clinical finding related to malnutrition, and document it, if agree. And specify the severity Such as: Mild - first degree Moderate - second degree Severe - third degree Severe malnutrition with marasmus Other, please specify The patient's Clinical Indicators include: ?87 y/o male brought with Difficulty swallowing, now unable to swallow s/p failed outpt swallow scree n. Referred for possible g tube place. H/o CVA. Does not feed self or walk?. Failure to Thrive Weight Loss Nutritional Support BMI: 18.2kg/m2 Please consider verify the clinical finding related to malnutrition, and document it, if agree. Query created by: Juliocesar Lo on 03/14/2018 11:51 AM Electronically signed by: Thony Mojica DO 03/14/2018 7:54 PM
--- NOTE | 2018-03-14 20:01 | PQF ---
PROVIDER RESPONSE TEXT: Unable to determine REVIEWER QUERY TEXT: Clarification of Clinical Diagnostic Findings Please clarify documentation or clinical relevance for the clinical / diagnostic findings or whether those are insignificant or unable to be further specified. The patient's Clinical Indicators include: He almost had some aspiration, but he coughed it up. Awaiting for chest x-ray to come back. WBC: 7.6/17.6/12.0 CXR Portable 03/14/2018: Mid left lung and right basilar infiltrates. Small right pleural effusion. Possible multifocal pneumo marcie. Query created by: Juliocesar Lo on 03/14/2018 11:57 AM Electronically signed by: Thony Mojica DO 03/14/2018 7:58 PM
[2018-03-15] MEDS: Cefepime IV 2 gm in Dextrose 2 GM/100 ML BAG IVPB SCH (01:29)
[2018-03-15] MEDS: Levothyroxine 125 MCG TAB PO SCH (06:12)
[2018-03-15] MEDS: Albuterol-Ipratrop 3 mg / 0.5 (3 ml) UD IH SCH ×4 (07:50→19:16)
[2018-03-15 08:43] LABS: HEMOGLOBIN 10.9 g/dL (12.0-18.0); MEAN CELL VOLUME 96.7 fL (80.0-94.0); MEAN CORPUSCULAR HEMOGLOBIN 32.8 pg (27.0-31.0); MEAN CORPUSCULAR HGB CONC 33.9 g/dL (33.0-37.0); MEAN PLATELET VOLUME 7.3 fL (7.2-11.7); RBC 3.33 Mil/uL (4.40-5.90); RED CELL DISTRIBUTION WIDTH 13.9 % (11.5-14.5); WHITE BLOOD COUNT 10.8 K/uL (4.8-10.8)
[2018-03-15 08:59] LABS: ALB/GLOB RATIO 0.9 (1.0-2.1); ALT/SGPT 12 U/L (21-72); AST/SGOT 27 U/L (17-59); BLOOD UREA NITROGEN 33 mg/dL (9-20); GFR NON-AFRICAN AMERICAN > 60
[2018-03-15] MEDS: Enoxaparin 30 mg Syringe SC SCH (09:27)
[2018-03-15] MEDS: POLYETHYLENE GLYCOL 3350 17 GM/Dose PACKET PO SCH ×2 (09:29→17:55)
--- NOTE | 2018-03-15 11:31 | CP.PCM.PN ---
Subjective - Date & Time of Evaluation Date of Evaluation: 03/15/18 Time of Evaluation: 05:00 - Subjective Subjective: afebrile opens eyes confused not following commands less congested Objective - Vital Signs/Intake and Output Vital Signs (last 24 hours): Temp Pulse Resp BP Pulse Ox 97.7 F 75 20 103/65 98 03/15/18 07:42 03/15/18 07:42 03/15/18 07:42 03/15/18 09:28 03/15/18 07:42 Intake and Output: 03/15/18 03/15/18 06:59 18:59 Intake Total 1200 Balance 1200 - Medications Medications: Current Medications Albuterol/Ipratropium (Duoneb 3 Mg/0.5 Mg (3 Ml) Ud) 3 ml IH RQID [facility] Last Admin: 03/15/18 11:05 Dose: 3 ml Ascorbic Acid (Vitamin C 500 Mg Tab) 500 mg PO BID [facility] Last Admin: 03/15/18 09:28 Dose: 500 mg Clopidogrel Bisulfate (Plavix) 75 mg PO DAILY [facility] Last Admin: 03/15/18 09:28 Dose: 75 mg Enoxaparin Sodium (Lovenox) 30 mg SC DAILY [facility] Last Admin: 03/15/18 09:27 Dose: 30 mg Ergocalciferol (Drisdol 50,000 Intl Units Cap) 1 cap PO QWK [facility] Last Admin: 03/11/18 10:41 Dose: 1 cap Finasteride (Proscar) 5 mg PO DAILY [facility] Last Admin: 03/15/18 09:28 Dose: 5 mg Folic Acid (Folic Acid) 1 mg PO DAILY [facility] Last Admin: 03/15/18 09:27 Dose: 1 mg Azithromycin 500 mg/ Sodium (Chloride) 250 mls @ 250 mls/hr IVPB Q24H [facility]; Protocol Last Admin: 03/14/18 14:48 Dose: 250 mls/hr Cefepime HCl (Maxipime Iv 2 Gm Premix) 2 gm in 100 mls @ 200 mls/hr IVPB Q12H [facility]; Protocol Last Admin: 03/15/18 01:29 Dose: 200 mls/hr Levothyroxine Sodium (Synthroid) 125 mcg PO DAILY@0630 [facility] Last Admin: 03/15/18 06:12 Dose: 125 mcg Metoprolol Tartrate (Lopressor) 25 mg PO DAILY [facility] Last Admin: 03/15/18 09:28 Dose: 25 mg Mirtazapine (Remeron) 15 mg PO HS [facility] Last Admin: 03/14/18 22:01 Dose: 15 mg Phenytoin Sodium (Dilantin) 100 mg PO QID [facility] Last Admin: 03/15/18 09:27 Dose: 100 mg Polyethylene Glycol (Miralax) 17 gm PO BID [facility] Last Admin: 03/15/18 09:29 Dose: 17 gm Tamsulosin HCl (Flomax) 0.4 mg PO DAILY [facility] Last Admin: 03/15/18 09:30 Dose: 0.4 mg - Labs Labs: 03/15/18 08:37 03/15/18 08:37 PT 12.3 SECONDS (9.7-12.2) H 03/09/18 16:53 INR 1.1 03/09/18 16:53 APTT 24 SECONDS (21-34) 03/09/18 16:53 - Constitutional Appears: Confused, Cachectic, Chronically Ill - Head Exam Head Exam: NORMOCEPHALIC - Eye Exam Eye Exam: PERRL. absent: Scleral icterus - ENT Exam ENT Exam: Mucous Membranes Dry - Neck Exam Neck Exam: absent: Lymphadenopathy - Respiratory Exam Respiratory Exam: Decreased Breath Sounds, Prolonged Expiratory Phase, Rhonchi - Cardiovascular Exam Cardiovascular Exam: REGULAR RHYTHM, +S1, +S2 - GI/Abdominal Exam GI & Abdominal Exam: Distended, Soft - Rectal Exam Rectal Exam: Deferred - Exam Exam: NORMAL INSPECTION - Extremities Exam Extremities Exam: absent: Pedal Edema - Back Exam Back Exam: absent: CVA tenderness (L), CVA tenderness (R) - Neurological Exam Neurological Exam: Altered Neuro motor strength exam: Left Upper Extremity: 3, Right Upper Extremity: 0, Left Lower Extremity: 3, Right Lower Extremity: 0 - Psychiatric Exam Psychiatric exam: Depressed - Skin Skin Exam: Dry Assessment and Plan (1) Pneumonia Status: Acute (2) Difficulty swallowing Status: Acute (3) Acute renal failure Status: Acute (4) BPH (benign prostatic hyperplasia) Status: Acute (5) CAD (coronary artery disease) Status: Acute - Assessment and Plan (Free Text) Assessment: improving slowly less congested Rx for HCAP in progress
--- NOTE | 2018-03-15 11:39 | PN ---
DATE: 03/15/2018 SUBJECTIVE: He is resting comfortably in bed, slept fairly well last night. He is status post PEG tube placement to failure to thrive and now he failed swallow evaluation. He then found to have a pneumonia on chest x-ray. He is on IV antibiotics by the infectious disease doctor. PHYSICAL EXAMINATION: GENERAL: He is alert, thumbs up sign which is good for him. VITAL SIGNS: He has a 98.1 temp, 75 pulse, 102/61 blood pressure, 20 respiratory rate, 96% O2 sat on 2 L. HEENT: Head is atraumatic and normocephalic. He is looking at me, at his baseline, does not talk much. He has got right-sided weakness from an old stroke. He is moving his left side. He is giving me the thumbs up sign which is good. HEART: Regular rate. LUNGS: Decreased breath sounds, but clear. ABDOMEN: Soft. EXTREMITIES: No edema. MEDICATIONS: He is currently on azithromycin, Dilantin, Drisdol, DuoNebs, Flomax, folic acid, Lopressor, Lovenox, Maxipime, MiraLax, Plavix, Proscar, Remeron, Synthroid, and vitamin C. LABORATORY DATA: He has 13,000 white count little high, 11.1 hemoglobin, 32.8 hematocrit, 270 platelets. He has 137 sodium, potassium 4.2, BUN 27, creatinine 0.8, chloride is 160, sugar is 153, calcium 9.1, lactic acid is 1.2, total bilirubin is 0.78, AST is 30, ALT is less than 6, alk phos is 83, total protein is 6.9, albumin is 3.5. Blood culture was no growth. When I get okay from the infectious disease, I will be able to discharge him to subacute rehab at [facility]. Hopefully, we can stop the antibiotics to him and check his labs this morning, they are pending. I also believe that the chest x-ray is pending. I will continue with aggressive treatment and care. Thony Mojica DO JOAN
[2018-03-15] MEDS: Cefepime 2 GM in Sodium Chloride 0.9% 100 ML IVPB SCH (12:48)
[2018-03-15] MEDS: Azithromycin 500 MG in Sodium Chloride 0.9% 250 ML IVPB SCH (13:23)
[2018-03-15] MEDS ORDERED: Pneumococcal 23-Valent Vaccine IM ONE (16:27)
[2018-03-15] MEDS ORDERED: Influenza Vaccine 60 mcg/0.5 mL SYR (4YR UP) IM ONE (16:27)
[2018-03-16] MEDS: Cefepime 2 GM in Sodium Chloride 0.9% 100 ML IVPB SCH (01:30)
[2018-03-16] MEDS: Levothyroxine 125 MCG TAB PO SCH (06:11)
[2018-03-16 07:23] LABS: MEAN CELL VOLUME 97.4 fL (80.0-94.0); MEAN CORPUSCULAR HEMOGLOBIN 33.2 pg (27.0-31.0); MEAN CORPUSCULAR HGB CONC 34.1 g/dL (33.0-37.0); MEAN PLATELET VOLUME 7.2 fL (7.2-11.7); RBC 3.31 Mil/uL (4.40-5.90); RED CELL DISTRIBUTION WIDTH 13.7 % (11.5-14.5); WHITE BLOOD COUNT 9.7 K/uL (4.8-10.8)
[2018-03-16 07:40] LABS: ALB/GLOB RATIO 0.9 (1.0-2.1); ALBUMIN 2.9 g/dL (3.5-5.0); ALT/SGPT 16 U/L (21-72); AST/SGOT 25 U/L (17-59); BLOOD UREA NITROGEN 33 mg/dL (9-20); CALCIUM 9.2 mg/dl (8.6-10.4); GFR NON-AFRICAN AMERICAN > 60
[2018-03-16 08:15] VITALS: BP 125/66; PULSE 79; TEMP 98.3; O2SAT 95
[2018-03-16] MEDS: Albuterol-Ipratrop 3 mg / 0.5 (3 ml) UD IH SCH (08:15)
[2018-03-16] MEDS: Enoxaparin 30 mg Syringe SC SCH (10:36)
[2018-03-16] MEDS: POLYETHYLENE GLYCOL 3350 17 GM/Dose PACKET PO SCH (10:38)
--- NOTE | 2018-03-16 12:23 | CON ---
DATE: 03/16/2018 REASON FOR CONSULTATION: At the request of the family. HISTORY OF PRESENT ILLNESS: This is an 87-year-old white male well known to me throughout the years, presently admitted with difficulty in swallowing diagnosis and pneumonia. Presently, seen at bedside, disorientated, confused. Pedal examination reveals no evidence of ulceration or gross infection. Hypertrophic onychomycosis noted and debrided without incident. Julian Velez DPM
--- NOTE | 2018-03-16 14:52 | DS ---
Going for PICC line to be placed and he will be transferred to [facility] for subacute rehab and IV antibiotics, Dilantin, Drisdol, DuoNeb, Flomax, folic acid, Lopressor, cefepime, MiraLax, Plavix, Proscar, Remeron, Synthroid, vitamin C and Zithromax. Give him Zithromax and Maxipime for seven more days. PHYSICAL EXAMINATION: VITAL SIGNS: Temperature 97.8, pulse 83, blood pressure 140/62, respiratory rate 29, 96% O2 sat on 2 L. GENERAL: He is alert. His eyes are open. He is looking at me. He is comfortable. HEAD: Atraumatic, normocephalic. HEART: Regular rate. LUNGS: Decreased breath sounds. ABDOMEN: Soft with PEG tube in place. Feedings are infusing. EXTREMITIES: No edema. He has got right-sided weakness. LABORATORY DATA: White count 10.8, hemoglobin 10.9, platelets 292, sodium 135, potassium 4.6, BUN 33, creatinine 0.7, GFR is greater than 60, sugar is 127, calcium is 9. Total bili is 0.58, AST 27, ALT 12, alk phos 60. PLAN: My plan is to get a PICC line put in him today. The PICC line was unable to be done yesterday. So, PICC line today. He will be discharged to [facility] for subacute rehab with pneumonia, dysphagia, cannot swallow, feeding tube. Continue with aggressive treatment and care at [facility]. Thony Mojica DO
== END 2018-03-16 12:22 | DRG 391 ==
LOC: C.ER 16:01 → C.9E 16:49 → C.3T 17:34 → OBSVTOIN 03-10 17:40
PROVIDERS: ADMIT Family Medicine; ATTEND Family Medicine
PROC: 0DH63UZ Insertion of Feeding Device into Stomach, Percutaneous Approach (ICD-10-PCS; 2018-03-10)
PROC: 0DJ08ZZ Inspection of Upper Intestinal Tract, Via Natural or Artificial Opening Endoscopic (ICD-10-PCS; principal; 2018-03-10 14:20)
DX: R13.10 Dysphagia, unspecified (principal); J18.9 Pneumonia, unspecified organism; Z68.1 Body mass index [BMI] 19.9 or less, adult; I69.351 Hemiplegia and hemiparesis following cerebral infarction affecting right dominant side; J44.0 Chronic obstructive pulmonary disease with (acute) lower respiratory infection; N17.9 Acute kidney failure, unspecified; R62.7 Adult failure to thrive; N40.0 Benign prostatic hyperplasia without lower urinary tract symptoms; Z66 Do not resuscitate; Z87.891 Personal history of nicotine dependence; K59.09 Other constipation; Z95.0 Presence of cardiac pacemaker; I48.91 Unspecified atrial fibrillation; K29.70 Gastritis, unspecified, without bleeding; E03.9 Hypothyroidism, unspecified; B35.1 Tinea unguium; G20 Parkinson's disease; H91.90 Unspecified hearing loss, unspecified ear; I50.9 Heart failure, unspecified; I25.10 Atherosclerotic heart disease of native coronary artery without angina pectoris; F03.90 Unspecified dementia, unspecified severity, without behavioral disturbance, psychotic disturbance, mood disturbance, and anxiety; Z79.02 Long term (current) use of antithrombotics/antiplatelets